=== PATIENT | female | born 1970 | race Caucasian/White ===

== ENCOUNTER 2017-01-10 20:25 | Emergency (ER) | payer SELFPAY ==
[~2017-01-10] VITALS: Ht 149.9 cm; Wt 43.7 kg
[2017-01-10 20:28] VITALS: TEMP 36.6; Ht 149.9 cm; Wt 43.7 kg
[2017-01-10] MEDS ORDERED: SODIUM CHLORIDE 0.9% 1000ML 1,000 ML IV STA (21:04)
[2017-01-10] MEDS ORDERED: ONDANSETRON INJ 2 MG/ML 2 ML VIAL IV STA (21:04)
[2017-01-10] MEDS ORDERED: MoRPHine SULFATE 4 MG/ML 1 ML CARP\\VIAL IV STA (21:04)
[2017-01-10 21:22] LABS: BASO % 0.3 %; BASO ABS # 0.03 K/uL (0-0.2); COMPLETE YES; EOS % 1.6 %; IG% 0.2 %; LYMPH % 26.9 %; LYMPH ABS # 3.08 K/uL (1.2-3.4); MEAN CELL VOLUME 87.6 fL (80-100); MEAN CORPUSCULAR HEMOGLOBIN 29.3 pg (25-34); MEAN CORPUSCULAR HGB CONC 33.4 g/dl (32-36); MONO % 4.9 %; NEUT % 66.1 %; PLATELET COUNT 260 K/uL (130-400); RED BLOOD COUNT 4.34 M/uL (4.2-5.4); WHITE BLOOD COUNT 11.43 K/uL (4.8-10.8)
[2017-01-10 21:30] LABS: BUN/CREATININE RATIO 24.8 (10-20); CALCIUM 8.9 mg/dl (8.5-10.1); CREATININE 0.81 mg/dl (0.60-1.20); POTASSIUM 3.2 mmol/L (3.5-5.1); PREG INTERNAL NEGATIVE QC NEG CLEAR BACKGROUND; PREG INTERNAL POSITIVE QC POS CONTROL LINE; URINE APPEARANCE CLEAR (CLEAR); URINE BILIRUBIN NEG (NEG); URINE COLOR YELLOW; URINE NITRITE NEG (NEG); URINE PH 5.5 (4.5-7.5); URINE SPECIFIC GRAVITY 1.026 (1.000-1.030); UROBILINOGEN NEG (NEG); ZZUR CULT IF INDIC CLEAN CATCH NO
[2017-01-10 21:31] LABS: MANUAL MICROSCOPIC REQUIRED? NO; REVIEW REQ? NO
[2017-01-10 21:33] LABS: ALB/GLOB RATIO 1.1 (0.9-2)
[2017-01-10] MEDS ORDERED: OPTIRAY 320 IV PRN (22:15)
[2017-01-10] MEDS ORDERED: MoRPHine SULFATE 4 MG/ML 1 ML CARP\\VIAL IM STA (23:04)
[2017-01-10] MEDS ORDERED: ONDANSETRON 4MG OD TAB ONE (23:48)
[2017-01-11] MEDS ORDERED: ONDANSETRON 4MG OD TAB PO ONE
--- NOTE | 2017-01-11 00:06 | EMERGENCY ROOM VISIT NOTE ---
History First contact with patient: 20:44 Chief Complaint: FLANK PAIN Stated Complaint: RT SIDE PAIN History of Present Illness The patient is a 46 year old female who presents to the Emergency Room with complaints of right abdominal/flank pain on and off for the past few days. The patient states that the pain is in the right side of her abdomen under her ribs. She has associated nausea and vomiting. She has been eating normally. She has a history of cholecystectomy. She states that she has been told she had pancreatitis, but she feels this was likely due to her gallbladder. She has a history of kidney stones, but does not feel this is similar. She denies any history of blood clots. She denies fevers/chills, changes in bowel movements, urinary symptoms, chest pain or shortness of breath. She does report a history of colitis, but states this is different. She rates her overall discomfort a 7/10. Review of Systems A complete 10 point review of systems was reviewed with the patient with pertinent positives and negatives as per history of present illness. All else were negative. Social History Smoking Status: Never Smoker Alcohol Use: occasionally Occupation Status: unemployed Current/Historical Medications Scheduled Ondasetron Odt (Zofran Odt), 4 MG SL Q6H Scheduled PRN Hydrocodone/Acetaminophen 5MG/325MG ([place] 5MG/325MG), 1-2 TABLET PO Q4H PRN for Pain Physical Exam Vital Signs Date Time Temp Pulse Resp B/P (MAP) Pulse Ox O2 Delivery O2 Flow Rate FiO2 01/11/17 00:25 82 18 117/82 100 01/10/17 23:15 100 17 119/70 98 Room Air 01/10/17 20:28 36.6 109 18 122/80 100 Room Air Physical Exam VITALS: Vitals are noted on the nurse's note and reviewed by myself. Vital signs stable. GENERAL: This is a 46-year-old female, in no acute distress, nondiaphoretic, well-developed well-nourished. HEART: Regular rate and rhythm without murmurs gallops or rubs. LUNGS: Clear to auscultation bilaterally without wheezes, rales or rhonchi. ABDOMEN: Positive bowel sounds x 4. Soft, mild right upper quadrant and right mid abdomen tenderness. No guarding or rebound tenderness. NEURO: Patient was alert and oriented to person place and time. Medical Decision & Procedures ER Provider Diagnostic Interpretation: CT OF THE ABDOMEN AND PELVIS WITHOUT CONTRAST, STONE PROTOCOL FINDINGS: No renal, ureteral or bladder calculi are present. There is no significant biliary ductal dilatation status post cholecystectomy. Several subcentimeter hypodense hepatic lesions are suboptimally assessed on this unenhanced exam but favor cysts. Unenhanced images of the spleen, adrenal glands and pancreas are normal. There is no evidence for a bowel obstruction. The appendix is not visualized. There is no lymphadenopathy. Skeletal structures are unremarkable. IMPRESSION: 1. No urinary calculi or hydronephrosis. 2. No acute process within the abdomen or pelvis on unenhanced exam. Laboratory Results 01/10/17 20:59 Red Blood Count 4.34, Mean Corpuscular Volume 87.6, Mean Corpuscular Hemoglobin 29.3, Mean Corpuscular Hemoglobin Concent 33.4, Mean Platelet Volume 10.0, Neutrophils (%) (Auto) 66.1, Lymphocytes (%) (Auto) 26.9, Monocytes (%) (Auto) 4.9, Eosinophils (%) (Auto) 1.6, Basophils (%) (Auto) 0.3, Neutrophils # (Auto) 7.56, Lymphocytes # (Auto) 3.08, Monocytes # (Auto) 0.56, Eosinophils # (Auto) 0.18, Basophils # (Auto) 0.03 01/10/17 20:59 Test 01/10/17 20:59 White Blood Count 11.43 K/uL (4.8-10.8) Red Blood Count 4.34 M/uL (4.2-5.4) Hemoglobin 12.7 g/dL (12.0-16.0) Hematocrit 38.0 % (37-47) Mean Corpuscular Volume 87.6 fL (80-100) Mean Corpuscular Hemoglobin 29.3 pg (25-34) Mean Corpuscular Hemoglobin Concent 33.4 g/dl (32-36) Platelet Count 260 K/uL (130-400) Mean Platelet Volume 10.0 fL (7.4-10.4) Neutrophils (%) (Auto) 66.1 % Lymphocytes (%) (Auto) 26.9 % Monocytes (%) (Auto) 4.9 % Eosinophils (%) (Auto) 1.6 % Basophils (%) (Auto) 0.3 % Neutrophils # (Auto) 7.56 K/uL (1.4-6.5) Lymphocytes # (Auto) 3.08 K/uL (1.2-3.4) Monocytes # (Auto) 0.56 K/uL (0.11-0.59) Eosinophils # (Auto) 0.18 K/uL (0-0.5) Basophils # (Auto) 0.03 K/uL (0-0.2) RDW Standard Deviation 45.8 fL (36.4-46.3) RDW Coefficient of Variation 14.2 % (11.5-14.5) Immature Granulocyte % (Auto) 0.2 % Immature Granulocyte # (Auto) 0.02 K/uL (0.00-0.02) D-Dimer 370 ug/L FEU (0-500) Urine Color YELLOW Urine Appearance CLEAR (CLEAR) Urine pH 5.5 (4.5-7.5) Urine Specific [place] 1.026 (1.000-1.030) Urine Protein NEG (NEG) Urine Glucose (UA) 2+ (NEG) Urine Ketones TRACE (NEG) Urine Occult Blood 1+ (NEG) Urine Nitrite NEG (NEG) Urine Bilirubin NEG (NEG) Urine Urobilinogen NEG (NEG) Urine Leukocyte Esterase NEG (NEG) Urine WBC (Auto) 0 /hpf (0-5) Urine RBC (Auto) 5-10 /hpf (0-4) Urine Hyaline Casts (Auto) 1-5 /lpf (0-5) Urine Epithelial Cells (Auto) 10-20 /lpf (0-5) Urine Bacteria (Auto) NEG (NEG) Urine Test NEG (NEG) Anion Gap 8.0 mmol/L (3-11) Est Creatinine Clear Calc Drug Dose 59.9 ml/min Estimated GFR () 101.7 Estimated GFR (Non- 87.7 BUN/Creatinine Ratio 24.8 (10-20) Calcium Level 8.9 mg/dl (8.5-10.1) Total Bilirubin 0.3 mg/dl (0.2-1) Aspartate Amino Transf (AST/SGOT) 12 U/L (15-37) Alanine Aminotransferase (ALT/SGPT) 22 U/L (12-78) Alkaline Phosphatase 53 U/L (45-117) Total Protein 7.6 gm/dl (6.4-8.2) Albumin 3.9 gm/dl (3.4-5.0) Globulin 3.7 gm/dl (2.5-4.0) Albumin/Globulin Ratio 1.1 (0.9-2) Lipase 357 U/L (73-393) Medications Administered Medications (Trade) Dose Ordered Sig/Cynthia Route Start Time Stop Time Status Last Admin Dose Admin Sodium Chloride 1,000 ml @ 999 mls/hr Q1H1M STAT IV 01/10/17 21:04 01/10/17 22:04 DC 01/10/17 21:32 999 MLS/HR Ondansetron HCl (Zofran Inj) 4 mg NOW STAT IV 01/10/17 21:04 01/10/17 21:07 DC 01/10/17 21:32 4 MG Morphine Sulfate (MoRPHine SULFATE INJ) 4 mg NOW STAT IV 01/10/17 21:04 01/10/17 21:07 DC 01/10/17 21:32 4 MG Morphine Sulfate (MoRPHine SULFATE INJ) 4 mg NOW STAT IM 01/10/17 23:04 01/10/17 23:05 DC 01/10/17 23:12 4 MG Ondansetron HCl (Zofran Odt) 4 mg ONE ONCE PO 01/11/17 00:00 01/11/17 00:01 DC 01/10/17 23:50 4 MG Acetaminophen/ Hydrocodone Bitart ([place] 5/325mg Home Pack) 1 homepack UD ONCE PO 01/11/17 00:15 01/11/17 00:16 DC 01/11/17 00:23 1 HOMEPACK Ondansetron HCl (ZOFRAN ODT 4MG Home Pack) 1 homepack UD ONCE PO 01/11/17 00:15 01/11/17 00:16 DC 01/11/17 00:23 1 HOMEPACK ED Course The patient was evaluated as above. Labs were drawn and IV access was obtained. Patient was medicated with 1 L normal saline solution, 4 mg morphine IV and 4 mg Zofran IV. Patient was reevaluated and had continued pain and nausea. She was given an additional dose of morphine and Zofran. Discharge instructions were reviewed with the patient. The patient verbalized understanding of my assessment and treatment plan and was discharged home in good condition. Medical Decision Differential diagnosis includes acute hepatitis, pancreatitis, bowel obstruction , kidney stone, pyelonephritis, pulmonary embolism, pneumonia, gastritis, colitis, among others. The patient is a 46-year-old female who presents today complaining of right flank pain. She has had a prior cholecystectomy. She is afebrile. Labs revealed a mild leukocytosis consistent with vomiting. Labs were otherwise unremarkable. No concerning electrolyte abnormalities. Lipase was not elevated. Urinalysis was not suggestive of infection. Urine was negative. CT of the abdomen and pelvis was read by radiology with no acute findings. The patient was treated symptomatically in the emergency department. She was discharged home with prescriptions for pain medication and Zofran. She was instructed to follow-up with her primary care provider this week. Based on the patient's presentation and work up, I feel the patient is stable for outpatient treatment. The patient was educated to return to the emergency department for any worsening of their current condition or new/concerning symptoms. She will follow up with her PCP. Medication Reconcilliation Current Medication List: was personally reviewed by me Blood Pressure Screening Patient's blood pressure: Normal blood pressure Impression Primary Impression: Right flank pain Departure Information Dispostion Home / Self-Care Condition GOOD Prescriptions Ondasetron Odt (ZOFRAN ODT) 4 Mg Tab 4 MG SL Q6H for Nausea, #10 TAB Prov: Brenda Berumen PA-C 01/11/17 Hydrocodone/Acetaminophen 5MG/325MG ([place] 5MG/325MG) Tab 1-2 TABLET PO Q4H Y for Pain, #10 TAB For Initial Treatment Prov: Brenda Berumen PA-C 01/11/17 Referrals No Doctor, Assigned (PCP) Patient Instructions My [facility] Additional Instructions You have been treated in the Emergency Department for your Abdominal Pain. Laboratory results and imaging studies have ruled out any emergent causes for your abdominal pain which would warrant admission or surgery. You have been prescribed [place] to be used for pain control. This is a narcotic medication. You cannot drive or consume alcohol while on this medicine. This medicine should only be used for pain that cannot be controlled with over-the- counter pain medicines. You have been prescribed Zofran to be used for any nausea or vomiting. Take as prescribed. For pain control, you can use the following [id number] medicines (if >12 yo): - Regular strength (325mg/tab) Tylenol (acetaminophen) 2 tabs every 4-6 hours as needed. Do not exceed 12 tablets in a 24 hour period. Avoid taking more than 4 grams (4000 mg) of Tylenol per day. This includes any other sources of acetaminophen you may take on a regular basis. - Regular strength (200 mg/tab) Advil (ibuprofen) 1-2 tabs every 4-6 hours as needed. Do not exceed a dose of 3200 mg per day. Drink plenty of water and stay well hydrated. As with any trip to the Emergency Department, you should follow-up with your Primary Care Provider from today's visit. Return to the emergency department if your symptoms persist despite treatment plan outlined above or if the following symptoms occur: increased fevers, chills , worsening nausea/vomiting, blood in your stool or urine.
[2017-01-11] MEDS ORDERED: HYDR-5688 PO (00:15)
[2017-01-11] MEDS ORDERED: NORCO 5/325MG HOME PACK PO ONE (00:15)
[2017-01-11] MEDS ORDERED: ONDA4TAB10 SL (00:15)
[2017-01-11] MEDS ORDERED: ONDANSETRON HOME PACK 4MG OD TAB PO ONE (00:15)
[2017-01-11 00:25] VITALS: BP 117/82; PULSE 82; O2SAT 100
--- NOTE | 2017-01-11 07:14 | DIAGNOSTIC IMAGING REPORT ---
CT OF THE ABDOMEN AND PELVIS WITHOUT CONTRAST, STONE PROTOCOL CLINICAL HISTORY: Right flank pain. COMPARISON STUDY: CT of the abdomen and pelvis August 04, 2006. TECHNIQUE: Helical axial images of the abdomen and pelvis were obtained without IV or oral contrast according to renal stone protocol. A dose lowering technique was utilized adhering to the principles of ALARA. FINDINGS: No renal, ureteral or bladder calculi are present. There is no significant biliary ductal dilatation status post cholecystectomy. Several subcentimeter hypodense hepatic lesions are suboptimally assessed on this unenhanced exam but favor cysts. Unenhanced images of the spleen, adrenal glands and pancreas are normal. There is no evidence for a bowel obstruction. The appendix is not visualized. There is no lymphadenopathy. Skeletal structures are unremarkable. IMPRESSION: 1. No urinary calculi or hydronephrosis. 2. No acute process within the abdomen or pelvis on unenhanced exam. Electronically signed by: Fernando Stoddard M.D. 01/11/2017 7:13 AM Dictated Date/Time: 01/11/2017 7:09 AM
== END 2017-01-11 00:25 | disposition home or self-care (01) ==
LOC: C.EDB 20:26
DX: R10.30 Lower abdominal pain, unspecified (principal); D72.829 Elevated white blood cell count, unspecified; R11.2 Nausea with vomiting, unspecified; Z90.49 Acquired absence of other specified parts of digestive tract

== ENCOUNTER 2017-03-12 17:08 | Emergency (ER) | payer SELFPAY ==
[~2017-03-12] VITALS: Ht 149.9 cm; Wt 44.1 kg
[~2017-03-12 17:08] MED LIST: HYDR-5688 PO; ONDA4TAB10 SL
[2017-03-12 17:13] VITALS: Ht 149.9 cm; Wt 44.1 kg
[2017-03-12] MEDS ORDERED: SODIUM CHLORIDE 0.9% 1000ML 1,000 ML IV STA (17:57)
[2017-03-12] MEDS ORDERED: CEFTRIAXONE SOD INJ 1 GM ADDVIAL IV STA (18:02)
[2017-03-12] MEDS ORDERED: IBUP-1050 PO (18:14)
--- NOTE | 2017-03-12 18:18 | EMERGENCY ROOM VISIT NOTE ---
History Report prepared by Luna: Cristóbal Moreira Under the Supervision of: Dr. Margareth Burt M.D. First contact with patient: 17:36 Chief Complaint: FLANK PAIN Stated Complaint: R FLANK PAIN, ABD PAIN, KIDNEY INFECTION History of Present Illness The patient is a 46 year old female who presents to the Emergency Room with complaints of right flank pain that began three days ago. She rates her current pain a 7/10 in severity. She has a past medical history of pyelonephritis and kidney stones. She believes that her current symptoms are similar to her symptoms associated with her past pyelonephritis. A couple of days ago, she began having strong smelling urine. She then began experiencing right flank pain , lower back pain, and lower abdominal pain as well. She denies any burning with urination. She denies any history of diabetes. Source of History: patient Onset: three days ago Position: other (Right flank) Symptom Intensity: 7/10 Quality: sharp Timing: constant Associated Symptoms: + abdominal pain, + back pain, + urinary symptoms ( strong smelling urine, no burning with urination) Review of Systems See HPI for pertinent positives & negatives. A total of 10 systems reviewed and were otherwise negative. Past Medical & Surgical Medical Problems: (1) Kidney stone (2) Pyelonephritis Family History Patient reports no known family medical history. Social History Smoking Status: Never Smoker Smokeless Tobacco Use: No Alcohol Use: occasionally Marital Status: single Housing Status: lives with family Occupation Status: unemployed Current/Historical Medications Scheduled Cephalexin Monohydrate (Keflex), 500 MG PO QID Scheduled PRN Ibuprofen (Advil), 400 MG PO DAILY PRN for Pain or Fever Allergies Coded Allergies: Codeine (Unverified Allergy, Severe, HIVES, 03/12/17) Ketorolac Tromethamine (Verified Allergy, Intermediate, HIVES, 01/10/17) Butorphanol (Verified Allergy, Mild, DYSTONIC REACTION, 01/10/17) Prochlorperazine (Unverified Allergy, Unknown, "DYSTONIC REACTION", ) Tramadol (Unverified Allergy, Unknown, UNKNOWN, 01/10/17) Physical Exam Vital Signs Date Time Temp Pulse Resp B/P (MAP) Pulse Ox O2 Delivery O2 Flow Rate FiO2 03/12/17 21:13 36.6 107 18 121/71 100 03/12/17 21:12 107 18 121/71 100 Room Air 03/12/17 19:32 110 18 118/71 100 Room Air 03/12/17 17:13 36.6 114 18 121/70 100 Room Air Physical Exam Vital signs reviewed. General: Well-appearing female, in no significant distress. HEENT: No scleral icterus, PERRLA, neck supple. Atraumatic. Cardiovascular: Regular rate and rhythm, no extra sounds. Pulmonary: Clear to auscultation bilaterally, normal work of breathing. Abdomen: Soft, nontender, nondistended, positive bowel sounds. Musculoskeletal: Atraumatic, no peripheral edema. Minimal CVA tenderness. Neurologic: Patient awake alert and oriented x 3 Skin: Warm, dry, no rash Medical Decision & Procedures ER Provider Diagnostic Interpretation: Radiology results as stated below per my review and radiologist interpretation: EXAMINATION: RENAL ULTRASOUND CLINICAL HISTORY: pyelonephritis, R flank pain COMPARISON STUDY: CT scan dated 01/10/2017 FINDINGS: The right kidney measures 10.1 cm. The left kidney measures 10.1 cm. There is no evidence of hydronephrosis. There are no renal masses. No perinephric fluid collections were visualized. The bladder was empty at the time of scanning. Neither ureteral jet was visualized. IMPRESSION : No renal abnormalities identified. Suboptimal evaluation of the bladder, as the bladder was empty at the time of scanning Electronically signed by: Dion Rollins M.D. 03/12/2017 7:55 PM Dictated Date/Time: 03/12/2017 7:54 PM Laboratory Results 03/12/17 18:36 Red Blood Count 4.39, Mean Corpuscular Volume 87.0, Mean Corpuscular Hemoglobin 29.2, Mean Corpuscular Hemoglobin Concent 33.5, Mean Platelet Volume 10.0, Neutrophils (%) (Auto) 77.3, Lymphocytes (%) (Auto) 16.9, Monocytes (%) (Auto) 4.8, Eosinophils (%) (Auto) 0.7, Basophils (%) (Auto) 0.1, Neutrophils # (Auto) 7.43, Lymphocytes # (Auto) 1.62, Monocytes # (Auto) 0.46, Eosinophils # (Auto) 0.07, Basophils # (Auto) 0.01 03/12/17 18:36 Test 03/12/17 18:00 03/12/17 18:36 Urine Color YELLOW Urine Appearance CLOUDY (CLEAR) Urine pH 6.5 (4.5-7.5) Urine Specific [place] 1.015 (1.000-1.030) Urine Protein NEG (NEG) Urine Glucose (UA) NEG (NEG) Urine Ketones NEG (NEG) Urine Occult Blood 2+ (NEG) Urine Nitrite POS (NEG) Urine Bilirubin NEG (NEG) Urine Urobilinogen NEG (NEG) Urine Leukocyte Esterase MODERATE (NEG) Urine WBC (Auto) >30 /hpf (0-5) Urine RBC (Auto) 0-4 /hpf (0-4) Urine Hyaline Casts (Auto) 5-10 /lpf (0-5) Urine Epithelial Cells (Auto) 5-10 /lpf (0-5) Urine Bacteria (Auto) 4+ (NEG) White Blood Count 9.61 K/uL (4.8-10.8) Red Blood Count 4.39 M/uL (4.2-5.4) Hemoglobin 12.8 g/dL (12.0-16.0) Hematocrit 38.2 % (37-47) Mean Corpuscular Volume 87.0 fL (80-100) Mean Corpuscular Hemoglobin 29.2 pg (25-34) Mean Corpuscular Hemoglobin Concent 33.5 g/dl (32-36) Platelet Count 234 K/uL (130-400) Mean Platelet Volume 10.0 fL (7.4-10.4) Neutrophils (%) (Auto) 77.3 % Lymphocytes (%) (Auto) 16.9 % Monocytes (%) (Auto) 4.8 % Eosinophils (%) (Auto) 0.7 % Basophils (%) (Auto) 0.1 % Neutrophils # (Auto) 7.43 K/uL (1.4-6.5) Lymphocytes # (Auto) 1.62 K/uL (1.2-3.4) Monocytes # (Auto) 0.46 K/uL (0.11-0.59) Eosinophils # (Auto) 0.07 K/uL (0-0.5) Basophils # (Auto) 0.01 K/uL (0-0.2) RDW Standard Deviation 45.7 fL (36.4-46.3) RDW Coefficient of Variation 14.3 % (11.5-14.5) Immature Granulocyte % (Auto) 0.2 % Immature Granulocyte # (Auto) 0.02 K/uL (0.00-0.02) Anion Gap 7.0 mmol/L (3-11) Est Creatinine Clear Calc Drug Dose 73.5 ml/min Estimated GFR () 123.6 Estimated GFR (Non- 106.7 BUN/Creatinine Ratio 15.6 (10-20) Calcium Level 9.2 mg/dl (8.5-10.1) Total Bilirubin 0.4 mg/dl (0.2-1) Direct Bilirubin 0.1 mg/dl (0-0.2) Aspartate Amino Transf (AST/SGOT) 14 U/L (15-37) Alanine Aminotransferase (ALT/SGPT) 19 U/L (12-78) Alkaline Phosphatase 53 U/L (45-117) Total Protein 7.3 gm/dl (6.4-8.2) Albumin 3.8 gm/dl (3.4-5.0) Laboratory results per my review. Medications Administered Medications (Trade) Dose Ordered Sig/Cynthia Route Start Time Stop Time Status Last Admin Dose Admin Acetaminophen (Tylenol Tab) 650 mg NOW STAT PO 03/12/17 18:22 03/12/17 18:23 DC 03/12/17 19:25 650 MG Ceftriaxone Sodium (Rocephin Im) 1,000 mg NOW ONCE IM 03/12/17 19:15 03/12/17 19:16 DC 03/12/17 19:25 1,000 MG Ondansetron HCl (Zofran Odt) 4 mg ONE STAT PO 03/12/17 20:23 03/12/17 20:25 DC 03/12/17 20:32 4 MG Hydromorphone HCl (Dilaudid Inj) 1 mg NOW STAT IM 03/12/17 20:24 03/12/17 20:25 DC 03/12/17 20:34 1 MG ED Course 1736: Past medical records reviewed. The patient was evaluated in room B4B. A complete history and physical examination was performed. 1757: Ordered Sodium Chloride 1000 ml @ 999 mls/hr IV 1802: Ordered Rocephin Inj 1 gm IV 1821: Ordered Tylenol Tab 650 mg PO 1914: Ordered Rocephin Im 1000 mg IM 2022: Ordered Zofran Odt 4 mg PO 2023: Ordered Dilaudid Inj 1 mg IM 2049: Upon reevaluation, the patient appeared to have improvement of her symptoms. I discussed findings with her. She verbalized agreement of the treatment plan. She was discharged home. Medical Decision Differential diagnosis: Etiologies such as renal colic, appendicitis, diverticulitis, mesenteric ischemia, aortic pathology, infections, inflammatory bowel disease, PUD, biliary pathology, UTI, as well as others were entertained. This patient was evaluated and appeared to be in no significant distress. IV access was attempted but unsuccessful. Laboratory work was drawn. Patient was given Tylenol 650 mg orally. Laboratory work is fairly unrevealing. Urinalysis is indicative of infection and will be sent for culture. Patient was given ceftriaxone 1 g IM. She continued to complain of discomfort and was given 1 mg of IM Dilaudid and Zofran ODT. Patient was discharged with a prescription for Keflex 500 mg 4 times daily for 7 days. The patient states she does not have insurance and would like a "cheap" antibiotic. Patient was advised to contact emergency department in 2 days' time for culture results. She will follow-up with her primary care provider this week and return to the ER for worsening of symptoms or any medical concerns. Medication Reconcilliation Current Medication List: was personally reviewed by me Blood Pressure Screening Patient's blood pressure: Normal blood pressure Blood pressure disposition: Did not require urgent referral Impression Primary Impression: Pyelonephritis Scribe Attestation The scribe's documentation has been prepared under my direction and personally reviewed by me in its entirety. I confirm that the note above accurately reflects all work, treatment, procedures, and medical decision making performed by me. Departure Information Dispostion Home / Self-Care Prescriptions Cephalexin Monohydrate (Keflex) 500 Mg Cap 500 MG PO QID for 7 Days, #28 CAP Prov: Margareth Burt M.D. 03/12/17 Referrals No Doctor, Assigned (PCP) Forms HOME CARE DOCUMENTATION FORM, IMPORTANT VISIT INFORMATION Patient Instructions My [facility] Additional Instructions Diagnosis: Pyelonephritis Keflex 500 mg four times daily for 7 days. Drink plenty of fluids. Tylenol 650 mg every 6 hours as needed for pain. Follow up with your doctor this week for reevaluation. Return to the ED for worsening of symptoms or any medical concerns.
[2017-03-12] MEDS ORDERED: ACETAMINOPHEN 325 MG TAB PO STA (18:22)
[2017-03-12 18:23] LABS: URINE APPEARANCE CLOUDY (CLEAR); URINE BILIRUBIN NEG (NEG); URINE COLOR YELLOW; URINE NITRITE POS (NEG); URINE PH 6.5 (4.5-7.5); URINE SPECIFIC GRAVITY 1.015 (1.000-1.030); UROBILINOGEN NEG (NEG); ZZUR CULT IF INDIC CLEAN CATCH YES
[2017-03-12 18:25] LABS: MANUAL MICROSCOPIC REQUIRED? NO; REVIEW REQ? NO
[2017-03-12 19:09] LABS: BASO % 0.1 %; BASO ABS # 0.01 K/uL (0-0.2); COMPLETE YES; EOS % 0.7 %; HEMATOCRIT 38.2 % (37-47); IG% 0.2 %; LYMPH % 16.9 %; LYMPH ABS # 1.62 K/uL (1.2-3.4); MEAN CORPUSCULAR HEMOGLOBIN 29.2 pg (25-34); MEAN CORPUSCULAR HGB CONC 33.5 g/dl (32-36); MONO % 4.8 %; NEUT % 77.3 %; PLATELET COUNT 234 K/uL (130-400); RED BLOOD COUNT 4.39 M/uL (4.2-5.4); WHITE BLOOD COUNT 9.61 K/uL (4.8-10.8)
[2017-03-12] MEDS ORDERED: CEFTRIAXONE SOD 350MG/ML 1 GM VIAL IM ONE (19:15)
[2017-03-12 19:33] LABS: BUN/CREATININE RATIO 15.6 (10-20); CALCIUM 9.2 mg/dl (8.5-10.1); CREATININE 0.66 mg/dl (0.60-1.20); POTASSIUM 3.5 mmol/L (3.5-5.1)
--- NOTE | 2017-03-12 19:56 | DIAGNOSTIC IMAGING REPORT ---
EXAMINATION: RENAL ULTRASOUND CLINICAL HISTORY: pyelonephritis, R flank pain COMPARISON STUDY: CT scan dated 01/10/2017 FINDINGS: The right kidney measures 10.1 cm. The left kidney measures 10.1 cm. There is no evidence of hydronephrosis. There are no renal masses. No perinephric fluid collections were visualized. The bladder was empty at the time of scanning. Neither ureteral jet was visualized. IMPRESSION : No renal abnormalities identified. Suboptimal evaluation of the bladder, as the bladder was empty at the time of scanning Electronically signed by: Dion Rollins M.D. 03/12/2017 7:55 PM Dictated Date/Time: 03/12/2017 7:54 PM
[2017-03-12] MEDS ORDERED: ONDANSETRON 4MG OD TAB PO STA (20:23)
[2017-03-12] MEDS ORDERED: HYDROmorphone INJ 1 MG/ML SYR IM STA (20:24)
[2017-03-12] MEDS ORDERED: CEPH500C PO (20:41)
[2017-03-12 21:13] VITALS: BP 121/71; PULSE 107; TEMP 36.6; O2SAT 100
--- NOTE | 2017-03-14 11:59 | Pharmacy Progress Note ---
ED Pharmacist Culture FollowUp Date of Service: Mar 14, 2017. Patient was sent home with a prescription for cephalexin, which should cover the E. coli growing from the patient's urine culture, based on reported sensitivity to cefazolin.
== END 2017-03-12 21:13 | disposition home or self-care (01) ==
LOC: C.EDB 17:09
DX: N12 Tubulo-interstitial nephritis, not specified as acute or chronic (principal); Z87.442 Personal history of urinary calculi

== ENCOUNTER 2022-01-17 15:56 | Observation (INO) ==
[2022-01-17] MEDS ORDERED: SODIUM CHLORIDE 0.9% 1000ML 1,000 ML IV ONE (16:26)
[2022-01-17] MEDS ORDERED: ONDANSETRON INJ 2 MG/ML 2 ML VIAL IV STA ×3 (16:26→21:55)
--- NOTE | 2022-01-17 16:50 | Emergency Department Note ---
History of Present Illness General Chief complaint: Vomiting Stated complaint: Vomiting/ Hx Gastroparesis Time Seen by Provider: 01/17/22 16:26 History of Present Illness Provider Complaint: + nausea and + vomiting Onset (ago): hour(s) 3 Description of Vomiting: + bilious; no blood-streaked, no bloody or no coffee grounds Associated Abdominal Pain: Yes Location of pain: + diffuse Quality: + cramping Pain Consistency: + constant Relieved By: + none Exacerbated By: + vomiting Context: + other (history gastroparesis); no recent surgery/procedure, no history of abdominal surgery, no alcohol abuse, no trauma, no anticoagulant use, no NSAID use, no caffeine, no self induced, no smoking, no CO exposure or no marijuana use Associated symptoms: no chest pain, no cough, no fever/chills, no headaches, no malaise, no dysuria, no shortness of breath, no syncope, no decreased urine output, no fecal incontinence, no altered mental status or no bloating Home Medications Medication Instructions Recorded Confirmed Type acetaminophen 325 mg capsule 325 mg PO Q6H PRN Pain 05/02/19 01/17/22 History (Tylenol) dicyclomine 10 mg capsule 10 mg PO QID PRN Diarrhea 07/12/20 01/17/22 History pediatric multivitamin 1 tab PO DAILY 12/26/20 01/17/22 History (Flintstones Multivitamin) lubiprostone 8 mcg capsule 8 mcg PO BID 12/29/20 01/17/22 History rizatriptan 10 mg tablet (Maxalt) 10 mg PO Q2H PRN migraine headache 09/17/21 01/17/22 Rx #10 tabs omeprazole 20 mg capsule,delayed 20 mg PO BID PRN Acid Reflux 10/19/21 01/17/22 History release promethazine 12.5 mg tablet 12.5 mg PO BID 10/19/21 01/17/22 History clobetasol 0.05 % topical ointment 1 applic topical BID 2 weeks #30 12/18/21 01/17/22 Rx grams hydroxyzine HCl 25 mg tablet 25 mg PO TID PRN anxiety #60 tabs 12/18/21 01/17/22 Rx nortriptyline 25 mg capsule 25 mg PO DAILY #90 caps 01/11/22 01/17/22 Rx (Pamelor) oxycodone-acetaminophen 5 mg-325 1 tab PO Q6H PRN pain 30 days #120 01/11/22 01/17/22 Rx mg tablet (Percocet) tabs prednisone 20 mg tablet 20 mg PO DAILY #30 tabs 01/11/22 01/17/22 Rx diclofenac sodium 1 % topical gel 2 g topical QID PRN Pain 01/17/22 01/17/22 History gabapentin 300 mg capsule 300 mg PO BID PRN Pain 01/17/22 01/17/22 History Allergies Allergy/AdvReac Type Severity Reaction Status Date / Time codeine Allergy Severe HIVES Verified 01/01/22 15:41 ketorolac Allergy Intermediate HIVES Verified 01/01/22 15:41 butorphanol Allergy Mild DYSTONIC Verified 01/01/22 15:41 REACTION prochlorperazine Allergy Unknown "DYSTONIC Verified 01/01/22 15:41 REACTION" acetaminophen Allergy Unknown Verified 01/01/22 15:41 [From Darvocet-N] morphine Allergy Unknown Verified 01/01/22 15:41 propoxyphene Allergy Unknown Verified 01/01/22 15:41 [From Darvocet-N] methadone AdvReac Intermediate Nausea, Verified 01/01/22 15:41 Vomitting tramadol AdvReac Unknown felt Verified 01/01/22 15:41 "foggy" Past Med/Surg History Medical History (Updated 01/18/22 @ 00:44 by Sean Hines) Arthritis Right flank pain Syncope Surgical History History of ankle surgery History of appendectomy History of carpal tunnel surgery History of exploratory laparotomy History of tonsillectomy and adenoidectomy History of tubal ligation Hx of cholecystectomy S/P endoscopy 05/17/19 Dr. Ruslan Hutson- Upper GI S/P ERCP 05/17/19 Dr. Ruslan Hutson- Upper esophagus US, ERCP Family History Grandmother (Paternal) Myocardial infarction Cardiac disorder Diabetes Hypertension High cholesterol Grandfather (Paternal) Myocardial infarction Diabetes Hypertension Uncle AAA (abdominal aortic aneurysm) Aunt AAA (abdominal aortic aneurysm) Grandmother (Maternal) AAA (abdominal aortic aneurysm) Diabetes Hypertension High cholesterol Sister Asthma Gallbladder disease Hypertension Kidney stones High cholesterol Grandfather (Maternal) Diabetes Hypertension Father Hypertension High cholesterol Mother Multiple sclerosis Other FHx: heart disease Family history of diabetes mellitus Denies family history of Colon cancer Ovarian cancer Prostate cancer Breast cancer Social History Smoking Status: Never smoker Hx Alcohol Use: Yes Hx Substance Use: No Preferred Language: Irish Visual Impairment: No Limitations Hearing Ability: Normal Beliefs That Will Affect Care: None marital status: Single Current Living Situation: Significant Other current occupational status: employed current occupation: nurse with [employer] Feels Safe at Home: Yes Childhood Exposure to Second-Hand Smoke: Yes caffeine: Yes Dental Care, Regularly: No Physical Activity Frequency: Does not Exercise Seatbelt Use: always Sunscreen Use: Yes Do you think of yourself as: straight/heterosexual Review of Systems A total of 10 systems reviewed and were otherwise negative Physical Exam Vital Signs: Vital Signs - 24 hr 01/17/22 16:15 01/17/22 16:26 01/17/22 18:00 Pulse Rate 83 Pulse Rate [Finger ] 79 Respiratory Rate 22 16 Blood Pressure 133/81 Blood Pressure [Ri ght Arm] Blood Pressure Patsy n 98 Blood Pressure Patsy n [Right Arm] Blood Pressure Pos ition Lying Pulse Oximetry 100 96 98 Oxygen Delivery Me thod Room Air Room Air Sepsis Recent Feve r Within 48 Hours No Sepsis New/Unexpla ined Change in Men angelia Status N/A Sepsis Action Take n by Nursing No Action Required 01/17/22 20:00 01/17/22 22:13 Pulse Rate Pulse Rate [Finger ] 70 76 Respiratory Rate 16 18 Blood Pressure Blood Pressure [Ri ght Arm] 96/61 L 97/53 L Blood Pressure Patsy n Blood Pressure Patsy n [Right Arm] 72 67 Blood Pressure Pos ition Pulse Oximetry 96 94 Oxygen Delivery Me thod Room Air Room Air Sepsis Recent Feve r Within 48 Hours Sepsis New/Unexpla ined Change in Men angelia Status Sepsis Action Take n by Nursing Physical Exam: Physical Exam GENERAL: Patient vomiting. HENT: Exam performed. -Head: Normocephalic and atraumatic. -Right Ear: External ear normal. No mastoid tenderness. -Left Ear: External ear normal. No mastoid tenderness. -Mouth/Throat: The oropharynx is clear and moist. No trismus in the jaw. No dental abscesses or uvula swelling. No oropharyngeal exudate or tonsillar abscesses. EYES: Conjunctivae and EOM are normal. Pupils are equal, round, and reactive to light. Right eye exhibits no discharge. Left eye exhibits no discharge. No scleral icterus. NECK: Normal range of motion. Neck supple. No JVD present. No spinous process tenderness present. No carotid bruit present. No rigidity. No tracheal deviation and normal range of motion present. No Brudzinski's sign and no Kernig's sign noted. CV: Normal rate, regular rhythm, normal heart sounds and intact distal pulses. There is no peripheral edema. Palpable radial pulses bue. PULM/CHEST: Effort normal and breath sounds normal. No respiratory distress. No stridor. She has no wheezes. She has no rales. -Chest Wall: She exhibits no tenderness. ABD: The abdomen is soft.There is no tenderness. MUSC/SKEL: Normal range of motion. There is no peripheral edema, tenderness or deformity. LYMPH: No cervical adenopathy. NEURO: She is alert and oriented to person, place, and time. She has normal strength. No cranial nerve deficit or sensory deficit. Coordination and gait normal. GCS eye subscore is 4. GCS verbal subscore is 5. GCS motor subscore is 6. Cerebellar tests wnl. SKIN: Skin is warm and dry. She is not diaphoretic. PSYCH: She has a normal mood and affect. Behavior is normal. Judgment and thought content normal. Course Course 1626: The patient was evaluated in room A2. A complete history and physical exam was performed Cardiac monitoring: An order was placed for continuous cardiac monitoring. The monitor shows a rate of 80 with sinus rhythm Administered Medications Discontinued Medications Hydromorphone HCl (Hydromorphone Inj 0.5 Mg/0.5 Ml Syr) 0.5 mg IV NOW STA Stop: 01/17/22 19:10 Last Admin: 01/17/22 19:24 Dose: 0.5 mg Documented By: GEORGE Hydromorphone HCl (Hydromorphone Inj 0.5 Mg/0.5 Ml Syr) 0.5 mg IV NOW STA Stop: 01/17/22 21:56 Last Admin: 01/17/22 22:02 Dose: 0.5 mg Documented By: GEORGE Sodium Chloride (Nss 1000ml) 1,000 mls @ 999 mls/hr IV .Q1H1M ONE Stop: 01/17/22 17:26 Last Infusion: 01/17/22 18:36 Dose: 0 mls/hr Documented By: Admin: 01/17/22 17:34 Dose: 999 mls/hr Documented By: GHASSAN Ondansetron HCl (Ondansetron Inj 2 Mg/Ml 2 Ml Vial) 4 mg IV NOW STA Stop: 01/17/22 16:27 Last Admin: 01/17/22 17:31 Dose: 4 mg Documented By: GHASSAN Ondansetron HCl (Ondansetron 4 Mg Od Tab) 4 mg PO NOW STA Stop: 01/17/22 16:52 Last Admin: 01/17/22 16:55 Dose: 4 mg Documented By: DARIELA Ondansetron HCl (Ondansetron Inj 2 Mg/Ml 2 Ml Vial) 4 mg IV NOW STA Stop: 01/17/22 19:10 Last Admin: 01/17/22 19:24 Dose: 4 mg Documented By: GEORGE Ondansetron HCl (Ondansetron Inj 2 Mg/Ml 2 Ml Vial) 4 mg IV NOW STA Stop: 01/17/22 21:56 Last Admin: 01/17/22 22:02 Dose: 4 mg Documented By: GEORGE Medical Decision Making Laboratory Data Result diagrams: 01/17/22 18:04 01/17/22 17:03 Lab Results 01/17/22 01/17/22 01/17/22 Range/Units 17:03 17:03 18:04 WBC Cancelled 22.69 H RBC Cancelled 4.77 Hgb Cancelled 13.8 Hct Cancelled 41.8 MCV Cancelled 87.6 MCH Cancelled 28.9 MCHC Cancelled 33.0 RDW Std Deviation Cancelled 56.2 H RDW Coeff of Vilma Cancelled 17.4 H Plt Count Cancelled 258 MPV Cancelled 9.7 Immature Gran % (Auto) Cancelled 0.5 Neut % (Auto) Cancelled 94.3 Lymph % (Auto) Cancelled 2.3 [place] % (Auto) Cancelled 2.5 Eos % (Auto) Cancelled 0.2 Baso % (Auto) Cancelled 0.2 Neut # (Auto) Cancelled 21.39 H Lymph # (Auto) Cancelled 0.53 L [place] # (Auto) Cancelled 0.56 Eos # (Auto) Cancelled 0.04 Baso # (Auto) Cancelled 0.05 Immature Gran # (Auto) Cancelled 0.12 H Absolute Nucleated RBC Cancelled Nucleated RBC % (auto) Cancelled Neutrophils % (Manual) Cancelled Band Neutrophils % Cancelled Lymphocytes % (Manual) Cancelled Prolymphocyte % Cancelled Reactive Lymphs % (Man) Cancelled Monocytes % (Manual) Cancelled Eosinophils % (Manual) Cancelled Basophils % (Manual) Cancelled Metamyelocytes % (Man) Cancelled Myelocytes % (Man) Cancelled Promyelocytes % (Man) Cancelled Blast Cells % (Manual) Cancelled Plasma Cell % (Manual) Cancelled Other Cells % Cancelled Nucleated RBC % Cancelled Neutrophils # (Manual) Cancelled Band Neutrophils # Cancelled Total Absolute Neuts Cancelled Lymphocytes # (Manual) Cancelled Prolymphocyte # Cancelled Reactive Lymphs # Cancelled Total Abs Lymphocytes Cancelled Monocytes # (Manual) Cancelled Eosinophils # (Manual) Cancelled Basophils # (Manual) Cancelled Metamyelocytes # (Man) Cancelled Myelocytes # (Manual) Cancelled Promyelocytes # (Man) Cancelled Blast Cells # (Man) Cancelled Plasma Cell # (Manual) Cancelled Other Cells # Cancelled Nucleated RBCs # (Man) Cancelled Hypersegmented Neuts Cancelled Hyposegmented Neuts Cancelled Hypogranular Neuts Cancelled Large Granular Lymphs Cancelled # Lrg Granular Lymphs Cancelled Hairy Cells Cancelled Smudge Cells Cancelled Toxic Granulation Cancelled Toxic Vacuolation Cancelled Dohle Bodies Cancelled Wiliam Rods Cancelled Platelet Estimate Cancelled Hypogranular Platelets Cancelled Clumped Platelets Cancelled Giant Platelets Cancelled Platelet Satelliting Cancelled RBC Morphology Cancelled Polychromasia Cancelled Hypochromasia Cancelled Poikilocytosis Cancelled Basophilic Stippling Cancelled Anisocytosis Cancelled Microcytosis Cancelled Macrocytosis Cancelled Spherocytes Cancelled Pappenheimer Bodies Cancelled Sickle Cells Cancelled Target Cells Cancelled Tear Drop Cells Cancelled Ovalocytes Cancelled Stomatocytes Cancelled Kraft-Venetie Bodies Cancelled Echinocytes Cancelled Acanthocytes (Spur) Cancelled Rouleaux Cancelled RBC Agglutinates Cancelled Schistocytes Cancelled Sezary Cell Cancelled Sodium 132 L (136-145) mmol/L Potassium 3.4 L (3.5-5.1) mmol/L Chloride 98 (98-107) mmol/L Carbon Dioxide 21 (21-32) mmol/L Anion Gap 13 H (3-11) BUN 14 (6-23) mg/dl Creatinine 0.78 (0.6-1.2) mg/dl Est Cr Clr Drug Dosing 57.5 ml/min Est GFR ( Amer) 102.7 ml/min Est GFR (Non-Af Amer) 88.6 ml/min BUN/Creatinine Ratio 17.9 (10-20) Glucose 144 H (70-99(Fasting)) mg/dl Calcium 10.6 H (8.5-10.1) mg/dl Total Bilirubin 0.6 (0.2-1.0) mg/dl Direct Bilirubin 0.1 (0-0.2) mg/dl AST 21 (13-39) U/L ALT 15 (7-52) U/L Alkaline Phosphatase 67 (34-104) U/L Total Protein 8.4 H (6.0-8.3) gm/dl Albumin 5.3 H (3.4-5.0) gm/dl Lipase 20 (11-82) U/L Urine Color Urine Appearance (Clear) Urine pH (4.5-7.5) Ur Specific [place] (1.000-1.030) Urine Protein (Negative) Urine Glucose (UA) (Negative) Urine Ketones (Negative) Urine Blood (Negative) Urine Nitrite (Negative) Urine Bilirubin (Negative) Urine Urobilinogen (Negative) Ur Leukocyte Esterase (Negative) Urine WBC (Auto) (0-5) /hpf Urine RBC (Auto) (0-4) /hpf U Hyaline Cast (Auto) (0-5) /lpf U Epithel Cells (Auto) (0-5) /lpf Urine Bacteria (Auto) (Negative) POC Ur Test (NEG) SARS-CoV-2, RNA, NAAT (NEGATIVE) Blood Parasites ID Cancelled 01/17/22 01/17/22 01/17/22 Range/Units 22:30 22:30 22:30 WBC RBC Hgb Hct MCV MCH MCHC RDW Std Deviation RDW Coeff of Vilma Plt Count MPV Immature Gran % (Auto) Neut % (Auto) Lymph % (Auto) [place] % (Auto) Eos % (Auto) Baso % (Auto) Neut # (Auto) Lymph # (Auto) [place] # (Auto) Eos # (Auto) Baso # (Auto) Immature Gran # (Auto) Absolute Nucleated RBC Nucleated RBC % (auto) Neutrophils % (Manual) Band Neutrophils % Lymphocytes % (Manual) Prolymphocyte % Reactive Lymphs % (Man) Monocytes % (Manual) Eosinophils % (Manual) Basophils % (Manual) Metamyelocytes % (Man) Myelocytes % (Man) Promyelocytes % (Man) Blast Cells % (Manual) Plasma Cell % (Manual) Other Cells % Nucleated RBC % Neutrophils # (Manual) Band Neutrophils # Total Absolute Neuts Lymphocytes # (Manual) Prolymphocyte # Reactive Lymphs # Total Abs Lymphocytes Monocytes # (Manual) Eosinophils # (Manual) Basophils # (Manual) Metamyelocytes # (Man) Myelocytes # (Manual) Promyelocytes # (Man) Blast Cells # (Man) Plasma Cell # (Manual) Other Cells # Nucleated RBCs # (Man) Hypersegmented Neuts Hyposegmented Neuts Hypogranular Neuts Large Granular Lymphs # Lrg Granular Lymphs Hairy Cells Smudge Cells Toxic Granulation Toxic Vacuolation Dohle Bodies Wiliam Rods Platelet Estimate Hypogranular Platelets Clumped Platelets Giant Platelets Platelet Satelliting RBC Morphology Polychromasia Hypochromasia Poikilocytosis Basophilic Stippling Anisocytosis Microcytosis Macrocytosis Spherocytes Pappenheimer Bodies Sickle Cells Target Cells Tear Drop Cells Ovalocytes Stomatocytes Kraft-[place] Bodies Echinocytes Acanthocytes (Spur) Rouleaux RBC Agglutinates Schistocytes Sezary Cell Sodium (136-145) mmol/L Potassium (3.5-5.1) mmol/L Chloride (98-107) mmol/L Carbon Dioxide (21-32) mmol/L Anion Gap (3-11) BUN (6-23) mg/dl Creatinine (0.6-1.2) mg/dl Est Cr Clr Drug Dosing ml/min Est GFR ( Amer) ml/min Est GFR (Non-Af Amer) ml/min BUN/Creatinine Ratio (10-20) Glucose (70-99(Fasting)) mg/dl Calcium (8.5-10.1) mg/dl Total Bilirubin (0.2-1.0) mg/dl Direct Bilirubin (0-0.2) mg/dl AST (13-39) U/L ALT (7-52) U/L Alkaline Phosphatase (34-104) U/L Total Protein (6.0-8.3) gm/dl Albumin (3.4-5.0) gm/dl Lipase (11-82) U/L Urine Color Yellow Urine Appearance Clear (Clear) Urine pH 5.0 (4.5-7.5) Ur Specific [place] 1.025 (1.000-1.030) Urine Protein Negative (Negative) Urine Glucose (UA) Negative (Negative) Urine Ketones 3+ H (Negative) Urine Blood 3+ H (Negative) Urine Nitrite Negative (Negative) Urine Bilirubin Negative (Negative) Urine Urobilinogen Negative (Negative) Ur Leukocyte Esterase Negative (Negative) Urine WBC (Auto) 1-5 (0-5) /hpf Urine RBC (Auto) 0-4 (0-4) /hpf U Hyaline Cast (Auto) 1-5 (0-5) /lpf U Epithel Cells (Auto) >30 H (0-5) /lpf Urine Bacteria (Auto) Negative (Negative) POC Ur Test NEG (NEG) SARS-CoV-2, RNA, NAAT NEGATIVE (NEGATIVE) Blood Parasites ID Imaging Data Radiologist's Impression: PreliminaryFindingsOnly See Final Report For Complete Findings CT ABDOMEN & PELVIS Without Contrast: Comparison:CT abdomen and pelvis 12/29/20 C holecystectomy. No biliarydilatation. Trace pneumobilia. Stable small hepatic cysts. Spleen, pancreas, adrenal glands, and kidneys are unremarkable. Distention of the duodenumis nonspecific but could represent a degree of SMAsyndrome. Bowel loops otherwise normal in caliber. No bowel inflammation. A ppendix not visualized. Uterus and urinarybladder are unremarkable. No acute osseous findings. Radiologist: Ivanna Yanez M.D. Study ready at 21:22 and initial results transmitted at 22:07 MDM Narrative Vital signs stable. Labs show leukocytosis thought to be reactive. Patient was extremely difficult vascular access we had to obtain vascular access to the patient's foot. We would not be able to give us IV contrast to the patient's foot. Patient was given oral contrast to drink but she was unable to tolerate it so CT was performed without contrast. Patient CT shows no obstruction. Patient is required multiple doses of antiemetics and analgesia in the emergency department patient will be admitted for intractable nausea and vomiting. Impression & Plan Intractable vomiting with nausea Discharge Plan Visit Data Chief Complaint: Vomiting Stated Complaint: Vomiting/ Hx Gastroparesis ED Provider: Sean Hines Discharge Problem: Intractable vomiting with nausea Patient Disposition: Admitted As Inpatient Discharge Instructions Interventions: ED Discharge Assessment Last Done: 01/18/22 00:32
[2022-01-17] MEDS ORDERED: ONDANSETRON 4 MG OD TAB PO STA (16:51)
[2022-01-17 17:39] LABS: Albumin Level 5.3 gm/dl (3.4-5.0); BUN Creatinine Ratio 17.9 (10-20); Bilirubin Direct 0.1 mg/dl (0-0.2); Bilirubin,Total 0.6 mg/dl (0.2-1.0); Calcium 10.6 mg/dl (8.5-10.1); Creatinine Clr Calc Pharmacy 57.5 ml/min; Est GFR (African American) 102.7 ml/min; Est GFR (Non-African American) 88.6 ml/min; Potassium 3.4 mmol/L (3.5-5.1); Total Protein 8.4 gm/dl (6.0-8.3)
[2022-01-17 18:14] LABS: Hematocrit (blood only) 41.8 % (34.1-44.9); Hemoglobin 13.8 g/dl (12.0-16.0); Mean Corpuscular Hemoglobin 28.9 pg (25.0-34.0); Mean Corpuscular Volume 87.6 fL (80.0-100.0); Mean Platelet Volume 9.7 fL (9.4-12.3); Platelet Count 258 K/uL (130-400); RDW Coefficient of Variation 17.4 % (11.5-14.5); RDW Standard Deviation 56.2 fL (36.4-46.3); Red Blood Count 4.77 M/uL (3.93-5.22); White Blood Count 22.69 K/ul (4.8-10.8)
[2022-01-17 18:31] LABS: Basophils # (auto) 0.05 K/uL (0-0.2); Basophils % (auto) 0.2 %; Eosinophils # (auto) 0.04 K/uL (0-0.50); Eosinophils % (auto) 0.2 %; Immature Granulocytes # (auto) 0.12 K/uL (0.00-0.02); Immature Granulocytes % (auto) 0.5 %; Lymphocytes # (auto) 0.53 K/uL (1.2-3.4); Lymphocytes % (auto) 2.3 %; Monocytes # (auto) 0.56 K/uL (0.24-0.82); Monocytes % (auto) 2.5 %; Neutrophils # (auto) 21.39 K/uL (1.4-6.5); Neutrophils % (auto) 94.3 %
--- NOTE | 2022-01-17 18:35 | XRay Report ---
XR abdomen 2V w PA chest CLINICAL HISTORY: vomitting. Bodyaches and chills COMPARISON STUDY: 12/29/2020 TECHNIQUE: Single view of the chest. Supine and upright views of the abdomen. FINDINGS: Single frontal view of the chest demonstrates the cardiomediastinal silhouette to be within normal li mits. The lungs are clear of acute alveolar opacities. There is no evidence for pleural effusion. The re is no evidence for vascular congestion. There is no acute osseous pathology. Abdomen: There is no free air or significant air-fluid levels present. The bowel gas pattern is withi n normal limits without evidence for dilatation or obstruction. Surgical clips are again seen from pr evious cholecystectomy. There is no evidence for organomegaly or gross intra-abdominal mass. No abnor mal calcifications are seen along the course of the urinary tracts bilaterally. No acute osseous path ology. IMPRESSION: 1. No acute intra-abdominal or chest abnormality. ACT 112: Negative or not required by law. Electronically signed by: Raudel Rawls M.D. 01/17/2022 6:33 PM
[2022-01-17] MEDS ORDERED: HYDROmorphone INJ 0.5 MG/0.5 ML SYR IV STA ×2 (19:09→21:55)
[2022-01-17 22:53] LABS: Appearance Urine Clear (Clear); Bacteria Urine Automated Negative (Negative); Bilirubin Urine Negative (Negative); Blood Urine 3+ (Negative); Color Urine Yellow; Epithelial Cell Urine Auto >30 /lpf (0-5); Glucose Urine UA Negative (Negative); Ketones Urine 3+ (Negative); Leukocyte Esterase Urine Negative (Negative); Nitrite Urine Negative (Negative); Protein Urine Negative (Negative); RBC Urine Automated 0-4 /hpf (0-4); Specific Gravity Urine 1.025 (1.000-1.030); Urobilinogen Urine Negative (Negative)
[2022-01-18] MEDS ORDERED: DICYCLOMINE HCL 10 MG CAP PO PRN (00:24)
[2022-01-18] MEDS ORDERED: HYDROmorphone INJ 0.5 MG/0.5 ML SYR IV PRN (00:24)
[2022-01-18] MEDS ORDERED: METOCLOPRAMIDE HCL INJ 5 MG/ML 2 ML VIAL IV PRN (00:24)
[2022-01-18] MEDS ORDERED: hydrOXYzine HCl 25 MG TAB PO PRN (00:24)
[2022-01-18] MEDS ORDERED: POTASSIUM CHLORIDE 20 MEQ/15 ML UDC PO STA (00:24)
[2022-01-18] MEDS ORDERED: GABAPENTIN 300 MG CAP PO PRN (00:24)
[2022-01-18] MEDS ORDERED: DICLOFENAC SOD 1% GEL 100 GM TUBE EXT PRN (00:24)
[2022-01-18] MEDS ORDERED: FAMOTIDINE 20MG/5ML IV PUSH IV ONE (00:47)
[2022-01-18] MEDS: FAMOTIDINE 20 MG in SYRINGE 3 ML IV SCH ×2 (01:38→09:11)
[2022-01-18] MEDS: SODIUM CHLORIDE 0.9% 1000ML 1,000 ML IV SCH ×2 (01:38→13:47)
--- NOTE | 2022-01-18 02:03 | History & Physical Report ---
Date of Service January 17, 2022 Assessment & Plan (1) Intractable vomiting with nausea: Plan: 51-year-old female with reported history of gastroparesis presenting with acute nausea with multiple episodes of vomiting and p.o. intolerance. Patient required multiple rounds of antiemetics as well as pain medication in the emergency room. As above, labs are significant for marked leukocytosis with WBC = 22.69 (most likely reactiveneutrophil predominance) lipase and LFTs are within normal limits. Observation to medical with telemetry Continue Zofran and Phenergan as needed Dilaudid as needed Reglan as needed Continue home nortriptyline and Amitiza Continue home Neurontin Continue home Bentyl Pepcid 20 mg IV twice daily Await over read from daytime radiologist. If SMA syndrome is expected patient should receive vascular imaging of the abdomen for further diagnosis. IV fluids with normal saline at 80 mL/h x 2 L Potassium repletion with 40 mEq p.o., repeat labs in the morning Check prealbumin with a.m. labs Consider nutrition consultation Admission and Anticipated Discharge Date Admission Date: January 17, 2022 History of Present Illness Chief Complaint: Nausea and vomiting Primary Care Provider: DO Gail Encarnacion Bao is a 51-year-old female with history of gastroparesis and arthritis presenting with persistent nausea and vomiting. Patient reports that she has been dealing with gastroparesis symptoms for 20 years. She was just recently diagnosed at [facility] approximately 2 years ago. She reports frequent bouts of nausea and vomiting as well as oral intolerance. She reports maintaining nutrition has been difficult. She has been speaking with surgeons regarding possible placement of a J-tube in the future. Patient was en route to a dermatology appointment this afternoon when she developed severe nausea and vomiting as well as diffuse abdominal pain. She reports vomiting over 2 L of liquid then bile, diaphoretic and near syncopal during her vomiting. Her friend called the ambulance. She reports vomiting over 60 times while she was waiting for the ambulance. She denies hematemesis. Denies fevers, chest pain, shortness of breath or diarrhea. In the ER patient with significant discomfort and persistent nausea. She was administered several rounds of antiemetics and pain medication. Difficult IV placement, patient ultimately had IV placed in the left foot. She was unable to tolerate oral contrast. ER course: Zofran 4 mg p.o., Zofran 4 mg IV x3 Normal saline x1 L bolus then 80 mL/h Dilaudid 0.5 mg IV x3 doses Pepcid 20 mg IV Potassium chloride 40 mg p.o. Allergies Allergy/AdvReac Type Severity Reaction Status Date / Time codeine Allergy Severe HIVES Verified 01/01/22 15:41 ketorolac Allergy Intermediate HIVES Verified 01/01/22 15:41 butorphanol Allergy Mild DYSTONIC Verified 01/01/22 15:41 REACTION prochlorperazine Allergy Unknown "DYSTONIC Verified 01/01/22 15:41 REACTION" acetaminophen Allergy Unknown Verified 01/01/22 15:41 [From Darvocet-N] morphine Allergy Unknown Verified 01/01/22 15:41 propoxyphene Allergy Unknown Verified 01/01/22 15:41 [From [facility]] methadone AdvReac Intermediate Nausea, Verified 01/01/22 15:41 Vomitting tramadol AdvReac Unknown felt Verified 01/01/22 15:41 "foggy" Home Medications Medication Instructions Recorded Confirmed Type acetaminophen 325 mg capsule 325 mg PO Q6H PRN Pain 05/02/19 01/17/22 History (Tylenol) dicyclomine 10 mg capsule 10 mg PO QID PRN Diarrhea 07/12/20 01/17/22 History pediatric multivitamin 1 tab PO DAILY 12/26/20 01/17/22 History (Flintstones Multivitamin) lubiprostone 8 mcg capsule 8 mcg PO BID 12/29/20 01/17/22 History rizatriptan 10 mg tablet (Maxalt) 10 mg PO Q2H PRN migraine headache 09/17/21 01/17/22 Rx #10 tabs omeprazole 20 mg capsule,delayed 20 mg PO BID PRN Acid Reflux 10/19/21 01/17/22 History release promethazine 12.5 mg tablet 12.5 mg PO BID 10/19/21 01/17/22 History clobetasol 0.05 % topical ointment 1 applic topical BID 2 weeks #30 12/18/21 01/17/22 Rx grams hydroxyzine HCl 25 mg tablet 25 mg PO TID PRN anxiety #60 tabs 12/18/21 01/17/22 Rx nortriptyline 25 mg capsule 25 mg PO DAILY #90 caps 01/11/22 01/17/22 Rx (Pamelor) oxycodone-acetaminophen 5 mg-325 1 tab PO Q6H PRN pain 30 days #120 01/11/22 01/17/22 Rx mg tablet (Percocet) tabs prednisone 20 mg tablet 20 mg PO DAILY #30 tabs 01/11/22 01/17/22 Rx diclofenac sodium 1 % topical gel 2 g topical QID PRN Pain 01/17/22 01/17/22 History gabapentin 300 mg capsule 300 mg PO BID PRN Pain 01/17/22 01/17/22 History Past Med/Surg History Medical History (Updated 01/18/22 @ 01:56 by May Enrique DO) Arthritis Gastroparesis Intractable vomiting with nausea Migraine headache without aura Surgical History History of ankle surgery History of appendectomy History of carpal tunnel surgery History of exploratory laparotomy History of tonsillectomy and adenoidectomy History of tubal ligation Hx of cholecystectomy S/P endoscopy 05/17/19 Dr. Rsulan Hutson- Upper GI S/P ERCP 05/17/19 Dr. Ruslan Hutson- Upper esophagus US, ERCP Family History Grandmother (Paternal) Myocardial infarction Cardiac disorder Diabetes Hypertension High cholesterol Grandfather (Paternal) Myocardial infarction Diabetes Hypertension Uncle AAA (abdominal aortic aneurysm) Aunt AAA (abdominal aortic aneurysm) Grandmother (Maternal) AAA (abdominal aortic aneurysm) Diabetes Hypertension High cholesterol Sister Asthma Gallbladder disease Hypertension Kidney stones High cholesterol Grandfather (Maternal) Diabetes Hypertension Father Hypertension High cholesterol Mother Multiple sclerosis Other FHx: heart disease Family history of diabetes mellitus Denies family history of Colon cancer Ovarian cancer Prostate cancer Breast cancer Social History Smoking Status: Never smoker Hx Alcohol Use: Yes Hx Substance Use: No Preferred Language: Divehi Visual Impairment: No Limitations Hearing Ability: Normal Beliefs That Will Affect Care: None marital status: Single Current Living Situation: Significant Other current occupational status: employed current occupation: nurse with [employer] Feels Safe at Home: Yes Childhood Exposure to Second-Hand Smoke: Yes caffeine: Yes Dental Care, Regularly: No Physical Activity Frequency: Does not Exercise Seatbelt Use: always Sunscreen Use: Yes Do you think of yourself as: straight/heterosexual Review of Systems Review of Systems: All systems reviewed & are unremarkable except as noted in HPI & below Physical Exam Physical Exam: General: patient very emotional and tearful in the ER, nontoxic, answers questions appropriately and follows commands Skin: warm, dry, erythematous rash present on bilateral lower extremities, plaque-like HEENT: NC/AT, PERRL, EOMI, anicteric sclera, conjunctiva without injection, external ear normal to inspection and nontender, nares patent, moist mucus membranes, dentition intact, no oropharyngeal lesions, neck supple, trachea midline, no LAD, no thyromegaly, no JVD Heart: +S1/S2, regular, no m/r/g Lungs: equal air entry bilaterally, no rales/rhonchi/wheezes Abd: +BS, soft, nondistended, diffusely tender to palpation without rebound, guarding or peritoneal signs Ext: warm, 2+ pulses in UE/LE bilaterally, no clubbing/cyanosis or edema Neuro: nonfocal, patient AA&O x 4, speech intact, no facial droop, moving all extremities on command with equal strength 5/5 Results & Data Results & Data ([facility]) Vital Signs (Past 12 Hours) Vital Signs Pulse Pulse Resp BP BP Pulse Ox O2 Del Method 01/17/22 22:13 76 18 97/53 L 94 Room Air 01/17/22 20:00 70 16 96/61 L 96 Room Air 01/17/22 18:00 79 16 98 01/17/22 16:26 96 Room Air 01/17/22 16:15 83 22 133/81 100 Room Air Laboratory Results Laboratory Results WBC 22.69 K/ul (4.8-10.8) H 01/17/22 18:04 RBC 4.77 M/uL (3.93-5.22) 01/17/22 18:04 Hgb 13.8 g/dl (12.0-16.0) 01/17/22 18:04 Hct 41.8 % (34.1-44.9) 01/17/22 18:04 MCV 87.6 fL (80.0-100.0) 01/17/22 18:04 MCH 28.9 pg (25.0-34.0) 01/17/22 18:04 MCHC 33.0 g/dL (32.0-36.0) 01/17/22 18:04 RDW Std Deviation 56.2 fL (36.4-46.3) H 01/17/22 18:04 RDW Coeff of Vilma 17.4 % (11.5-14.5) H 01/17/22 18:04 Plt Count 258 K/uL (130-400) 01/17/22 18:04 MPV 9.7 fL (9.4-12.3) 01/17/22 18:04 Immature Gran % (Auto) 0.5 % 01/17/22 18:04 Neut % (Auto) 94.3 % 01/17/22 18:04 Lymph % (Auto) 2.3 % 01/17/22 18:04 [place] % (Auto) 2.5 % 01/17/22 18:04 Eos % (Auto) 0.2 % 01/17/22 18:04 Baso % (Auto) 0.2 % 01/17/22 18:04 Neut # (Auto) 21.39 K/uL (1.4-6.5) H 01/17/22 18:04 Lymph # (Auto) 0.53 K/uL (1.2-3.4) L 01/17/22 18:04 [place] # (Auto) 0.56 K/uL (0.24-0.82) 01/17/22 18:04 Eos # (Auto) 0.04 K/uL (0-0.50) 01/17/22 18:04 Baso # (Auto) 0.05 K/uL (0-0.2) 01/17/22 18:04 Immature Gran # (Auto) 0.12 K/uL (0.00-0.02) H 01/17/22 18:04 Absolute Nucleated RBC Cancelled 01/17/22 17:03 Nucleated RBC % (auto) Cancelled 01/17/22 17:03 Neutrophils % (Manual) Cancelled 01/17/22 17:03 Band Neutrophils % Cancelled 01/17/22 17:03 Lymphocytes % (Manual) Cancelled 01/17/22 17:03 Prolymphocyte % Cancelled 01/17/22 17:03 Reactive Lymphs % (Man) Cancelled 01/17/22 17:03 Monocytes % (Manual) Cancelled 01/17/22 17:03 Eosinophils % (Manual) Cancelled 01/17/22 17:03 Basophils % (Manual) Cancelled 01/17/22 17:03 Metamyelocytes % (Man) Cancelled 01/17/22 17:03 Myelocytes % (Man) Cancelled 01/17/22 17:03 Promyelocytes % (Man) Cancelled 01/17/22 17:03 Blast Cells % (Manual) Cancelled 01/17/22 17:03 Plasma Cell % (Manual) Cancelled 01/17/22 17:03 Other Cells % Cancelled 01/17/22 17:03 Nucleated RBC % Cancelled 01/17/22 17:03 Neutrophils # (Manual) Cancelled 01/17/22 17:03 Band Neutrophils # Cancelled 01/17/22 17:03 Total Absolute Neuts Cancelled 01/17/22 17:03 Lymphocytes # (Manual) Cancelled 01/17/22 17:03 Prolymphocyte # Cancelled 01/17/22 17:03 Reactive Lymphs # Cancelled 01/17/22 17:03 Total Abs Lymphocytes Cancelled 01/17/22 17:03 Monocytes # (Manual) Cancelled 01/17/22 17:03 Eosinophils # (Manual) Cancelled 01/17/22 17:03 Basophils # (Manual) Cancelled 01/17/22 17:03 Metamyelocytes # (Man) Cancelled 01/17/22 17:03 Myelocytes # (Manual) Cancelled 01/17/22 17:03 Promyelocytes # (Man) Cancelled 01/17/22 17:03 Blast Cells # (Man) Cancelled 01/17/22 17:03 Plasma Cell # (Manual) Cancelled 01/17/22 17:03 Other Cells # Cancelled 01/17/22 17:03 Nucleated RBCs # (Man) Cancelled 01/17/22 17:03 Hypersegmented Neuts Cancelled 01/17/22 17:03 Hyposegmented Neuts Cancelled 01/17/22 17:03 Hypogranular Neuts Cancelled 01/17/22 17:03 Large Granular Lymphs Cancelled 01/17/22 17:03 # Lrg Granular Lymphs Cancelled 01/17/22 17:03 Hairy Cells Cancelled 01/17/22 17:03 Smudge Cells Cancelled 01/17/22 17:03 Toxic Granulation Cancelled 01/17/22 17:03 Toxic Vacuolation Cancelled 01/17/22 17:03 Dohle Bodies Cancelled 01/17/22 17:03 Wiliam Rods Cancelled 01/17/22 17:03 Platelet Estimate Cancelled 01/17/22 17:03 Hypogranular Platelets Cancelled 01/17/22 17:03 Clumped Platelets Cancelled 01/17/22 17:03 Giant Platelets Cancelled 01/17/22 17:03 Platelet Satelliting Cancelled 01/17/22 17:03 RBC Morphology Cancelled 01/17/22 17:03 Polychromasia Cancelled 01/17/22 17:03 Hypochromasia Cancelled 01/17/22 17:03 Poikilocytosis Cancelled 01/17/22 17:03 Basophilic Stippling Cancelled 01/17/22 17:03 Anisocytosis Cancelled 01/17/22 17:03 Microcytosis Cancelled 01/17/22 17:03 Macrocytosis Cancelled 01/17/22 17:03 Spherocytes Cancelled 01/17/22 17:03 Pappenheimer Bodies Cancelled 01/17/22 17:03 Sickle Cells Cancelled 01/17/22 17:03 Target Cells Cancelled 01/17/22 17:03 Tear Drop Cells Cancelled 01/17/22 17:03 Ovalocytes Cancelled 01/17/22 17:03 Stomatocytes Cancelled 01/17/22 17:03 [place] Bodies Cancelled 01/17/22 17:03 Echinocytes Cancelled 01/17/22 17:03 Acanthocytes (Spur) Cancelled 01/17/22 17:03 Rouleaux Cancelled 01/17/22 17:03 RBC Agglutinates Cancelled 01/17/22 17:03 Schistocytes Cancelled 01/17/22 17:03 Sezary Cell Cancelled 01/17/22 17:03 Sodium 132 mmol/L (136-145) L 01/17/22 17:03 Potassium 3.4 mmol/L (3.5-5.1) L 01/17/22 17:03 Chloride 98 mmol/L (98-107) 01/17/22 17:03 Carbon Dioxide 21 mmol/L (21-32) 01/17/22 17:03 Anion Gap 13 (3-11) H 01/17/22 17:03 BUN 14 mg/dl (6-23) 01/17/22 17:03 Creatinine 0.78 mg/dl (0.6-1.2) 01/17/22 17:03 Est Cr Clr Drug Dosing 57.5 ml/min 01/17/22 17:03 Est GFR ( Amer) 102.7 ml/min 01/17/22 17:03 Est GFR (Non-Af Amer) 88.6 ml/min 01/17/22 17:03 BUN/Creatinine Ratio 17.9 (10-20) 01/17/22 17:03 Glucose 144 mg/dl (70-99(Fasting)) H 01/17/22 17:03 Calcium 10.6 mg/dl (8.5-10.1) H 01/17/22 17:03 Magnesium 2.2 mg/dl (1.7-2.4) 01/17/22 17:03 Total Bilirubin 0.6 mg/dl (0.2-1.0) 01/17/22 17:03 Direct Bilirubin 0.1 mg/dl (0-0.2) 01/17/22 17:03 AST 21 U/L (13-39) 01/17/22 17:03 ALT 15 U/L (7-52) 01/17/22 17:03 Alkaline Phosphatase 67 U/L (34-104) 01/17/22 17:03 Total Protein 8.4 gm/dl (6.0-8.3) H 01/17/22 17:03 Albumin 5.3 gm/dl (3.4-5.0) H 01/17/22 17:03 Lipase 20 U/L (11-82) 01/17/22 17:03 Urine Color Yellow 01/17/22 22:30 Urine Appearance Clear (Clear) 01/17/22 22:30 Urine pH 5.0 (4.5-7.5) 01/17/22 22:30 Ur Specific [place] 1.025 (1.000-1.030) 01/17/22 22:30 Urine Protein Negative (Negative) 01/17/22 22:30 Urine Glucose (UA) Negative (Negative) 01/17/22 22:30 Urine Ketones 3+ (Negative) H 01/17/22 22:30 Urine Blood 3+ (Negative) H 01/17/22 22:30 Urine Nitrite Negative (Negative) 01/17/22 22:30 Urine Bilirubin Negative (Negative) 01/17/22 22:30 Urine Urobilinogen Negative (Negative) 01/17/22 22:30 Ur Leukocyte Esterase Negative (Negative) 01/17/22 22:30 Urine WBC (Auto) 1-5 /hpf (0-5) 01/17/22 22:30 Urine RBC (Auto) 0-4 /hpf (0-4) 01/17/22 22:30 U Hyaline Cast (Auto) 1-5 /lpf (0-5) 01/17/22 22:30 U Epithel Cells (Auto) >30 /lpf (0-5) H 01/17/22 22:30 Urine Bacteria (Auto) Negative (Negative) 01/17/22 22:30 POC Ur Test NEG (NEG) 01/17/22 22:30 SARS-CoV-2, RNA, NAAT NEGATIVE (NEGATIVE) 01/17/22 22:30 Blood Parasites ID Cancelled 01/17/22 17:03 Impressions Chest/Abdomen X-ray 01/17/22 16:26 XR abdomen 2V w PA chest CLINICAL HISTORY: vomitting. Bodyaches and chills COMPARISON STUDY: 12/29/2020 TECHNIQUE: Single view of the chest. Supine and upright views of the abdomen. FINDINGS: Single frontal view of the chest demonstrates the cardiomediastinal silhouette to be within normal limits. The lungs are clear of acute alveolar opacities. There is no evidence for pleural effusion. There is no evidence for vascular congestion. There is no acute osseous pathology. Abdomen: There is no free air or significant air-fluid levels present. The bowel gas pattern is within normal limits without evidence for dilatation or obstruction. Surgical clips are again seen from previous cholecystectomy. There is no evidence for organomegaly or gross intra-abdominal mass. No abnormal calcifications are seen along the course of the urinary tracts bilaterally. No acute osseous pathology. IMPRESSION: 1. No acute intra-abdominal or chest abnormality. ACT 112: Negative or not required by law. Electronically signed by: Raudel Rawls M.D. 01/17/2022 6:[address] abdomen and pelvis without contrastPer stat read: Comparison to CT abdomen and pelvis 12/29/2020. Cholecystectomy. No biliary dilatation. Trace pneumobilia. Stable small hepatic cyst. Spleen, pancreas, adrenal glands and kidneys are unremarkable. Distention of the duodenum is nonspecific but could represent a degree of SMA syndrome. Bowel loops otherwise normal in caliber. No bowel formation. Appendix not visualized. Uterus and urinary bladder are unremarkable. No acute osseous findings. PG Care Time/CCT Total # of Minutes Spent Total Time Spent with Patient: Total time spent is greater than 50% in coordination of care (as documented) at patient's floor/unit and/or counseling patient: Coding Level of Care Code INT OBSERVATION CARE 51M LVL 2 Diagnoses Intractable vomiting with nausea R11.2
[2022-01-18] MEDS ORDERED: PROMETHAZINE 12.5 MG/50.5 ML NSS IV ONE (05:08)
[2022-01-18] MEDS: HYDROmorphone INJ 0.5 MG/0.5 ML SYR IV PRN ×6 (05:53→22:45)
[2022-01-18 07:30] LABS: Hematocrit (blood only) 38.4 % (34.1-44.9); Hemoglobin 12.7 g/dl (12.0-16.0); Mean Corpuscular Hemoglobin 28.9 pg (25.0-34.0); Mean Corpuscular Hgb Conc 33.1 g/dL (32.0-36.0); Mean Corpuscular Volume 87.3 fL (80.0-100.0); Mean Platelet Volume 9.4 fL (9.4-12.3); Platelet Count 242 K/uL (130-400); RDW Coefficient of Variation 17.5 % (11.5-14.5); RDW Standard Deviation 55.9 fL (36.4-46.3); White Blood Count 12.03 K/ul (4.8-10.8)
[2022-01-18 07:31] LABS: Basophils # (auto) 0.02 K/uL (0-0.2); Basophils % (auto) 0.2 %; Eosinophils # (auto) 0.09 K/uL (0-0.50); Eosinophils % (auto) 0.7 %; Immature Granulocytes # (auto) 0.04 K/uL (0.00-0.02); Immature Granulocytes % (auto) 0.3 %; Lymphocytes # (auto) 1.31 K/uL (1.2-3.4); Lymphocytes % (auto) 10.9 %; Monocytes # (auto) 0.48 K/uL (0.24-0.82); Neutrophils # (auto) 10.09 K/uL (1.4-6.5); Neutrophils % (auto) 83.9 %
[2022-01-18 07:49] LABS: BUN Creatinine Ratio 17.8 (10-20); Bilirubin,Total 0.6 mg/dl (0.2-1.0); Calcium 8.3 mg/dl (8.5-10.1); Creatinine Clr Calc Pharmacy 61.4 ml/min; Est GFR (African American) 111.3 ml/min; Potassium 3.9 mmol/L (3.5-5.1); Prealbumin 17.9 mg/dl (20-40); Total Protein 6.2 gm/dl (6.0-8.3)
--- NOTE | 2022-01-18 07:53 | CT Scan Report ---
ABDOMEN AND PELVIS CT WITHOUT CONTRAST CT DOSE: 232.06 mGy.cm HISTORY: Acute nausea and vomiting with generalized abdominal pain nv abd pain TECHNIQUE: Multiaxial CT images of the abdomen and pelvis were performed without contrast. A dose lo wering technique was utilized adhering to the principles of ALARA. COMPARISON STUDY: Acute abdominal series radiographs of same day, CT abdomen pelvis 12/29/2020 FINDINGS: Imaged inferior cardiac chambers are unremarkable. The unenhanced spleen, pancreas and adre nal glands are unremarkable. Cholecystectomy. Minimal pneumobilia with mild intrahepatic and extrahep atic biliary ductal dilation is likely on a postsurgical basis and appears similar to comparison.Ther e are a few scattered hepatic cysts measuring up to 9 mm within the left hepatic lobe and 1.3 cm with in the right hepatic lobe. 7 mm cyst of the superior pole right kidney. 2 mm nonobstructing calculus of the interpolar left kidn ey. No ureteral calculi or hydronephrosis identified. Unremarkable urinary bladder. Pelvic basin phle boliths. Uterus and adnexa are unremarkable. Aorta and IVC are within normal limits. There is no lonny opathy. Mild distention the duodenum with narrowing at the third portion is favored to be physiologic. Modera te fecal retention. There is no bowel obstruction or bowel wall thickening. Appendectomy. Mild fecal retention. Trace free pelvic fluid is likely physiologic. Unremarkable soft tissues. Small posterior disc osteophyte complex at L5-S1. There is no acute fracture. IMPRESSION: 1. No acute intra-abdominal or intrapelvic abnormality. 2. 2 mm left renal calculus. 3. No bowel obstruction or bowel wall thickening. 4. Prior cholecystectomy and appendectomy. ACT 112: Negative or not required by law. The above report was generated using voice recognition software. It may contain grammatical, syntax o r spelling errors. Electronically signed by: Lucio Serrato M.D. 01/18/2022 7:51 AM
[2022-01-18] MEDS ORDERED: NORTRIPTYLINE HCL 25 MG CAP PO SCH (09:00)
[2022-01-18] MEDS: LUBIPROSTONE 8 MCG CAP PO SCH ×2 (09:10→20:03)
[2022-01-18] MEDS: ONDANSETRON INJ 2 MG/ML 2 ML VIAL IV PRN (11:33)
--- NOTE | 2022-01-18 16:41 | Hospitalist Progress Note ---
Date of Service January 18, 2022 Assessment & Plan (1) Intractable vomiting with nausea: Plan: 51-year-old female with reported history of gastroparesis presenting with acute nausea with multiple episodes of vomiting and p.o. intolerance. Patient required multiple rounds of antiemetics as well as pain medication in the emergency room. # Intractable vomiting with nausea in the setting of gastroparesis - CT Abdomen/Pelvis without obstruction or bowel wall thickening; incidental finding fo renal calculus (see below) - Zofran, Phenergan, Reglan - IVFs at 80/hr - switched Pepcid to Protonix 40mg BID IV due to inability to tolerate PO - continue home nortriptyline, Amitiza and gabapentin - continue home Bentyl PRN TID abdominal pain/spasm - Keep follow up with GI in [place] # Abdominal pain - secondary to emesis - increased Dilaudid frequency 0.5mg q3h and wean as able once she is able to take PO and can transition back to her home pain regimen (see below) # Hypokalemia - repleting as indicated # Protein calorie malnutrition - pre-albumin is 17.9 - PO ad jean - nutrition consult--appreciate recommendations # Renal calculus - incidental finding on CT Abd/Pelvis on admission - asymptomatic # chronic pain, thoracic outlet syndrome, cervical spinal pain, complex regional pain syndrome of the RUE - prescribed Han[place] 5-325mg q6h PRN moderate to severe pain--holding this for now since she is getting IV Dilaudid due to inability to take PO Dispo: pending clinical improvement. Admission and Anticipated Discharge Date Admission Date: January 17, 2022 Supervising Physician Co-Signing Physician Notes Patient see and examined independently of PGY-1 Dr. Wayne. Agree with history, exam findings, assessment and plan of care as outlined. In brief, Gail is a 51 year-old female with reported history of gastroparesis presenting with acute nausea with multiple episodes of vomiting and p.o. intolerance. Patient required multiple rounds of antiemetics as well as pain medication in the emergency room. She is tearful today as she has not relief from her current pain medication regimen. Having abdominal pain that she feels is muscular and radiates up into the lower part of her chest. She does report that she uses Bentyl as an outpatient fo intestinal spasm and this is helpful, but this feels more muscular. Still having nausea but no vomiting. Reports that the Phenergan works best for nausea. Has had haldol in the past but this tends ot make her very paranoid. VS and nursing notes reviewed. Tearful and anxious. Abdomen is soft. Epigastric tenderness, RLQ tenderness. Labs and imaging reviewed 1. Intractable vomiting with nausea in the setting of gastroparesis. CT Abdomen/Pelvis without obstruction or bowel wall thickening. PRN Zofran, Phenergan, Reglan. IVFs. PPI. Continue home nortriptyline, amitiza, gabapentin and Bentyl. 2. Abdominal pain. secondary to emesis. Likely MSK related. Unable to take PO so increased dilaudid 0.5mg q3h. Once she is able to take PO can transition to home Hanover regimen. 3. Protein calorie malnutrition. Pre-albumin is 17.9; nutrition consulted. 4. chronic pain. Holding home Hanover q6h since she is getting IV dialudid; however can transition back to PO meds once she is able to take PO. Dispo: pending clinical improvement. Subjective Patient was seen bedside this AM. Patient is very tearful and felt judged by staff and nurses. She is c/o RLQ pain and epigastric pain. She also c/o N ausea, but has not had any vomiting. Review of Systems Constitutional: + body aches, + fatigue, + weakness, + anorexia and + insomnia Eyes: as per Subjective / HPI Respiratory: as per Subjective / HPI Cardiovascular: as per Subjective / HPI Gastrointestinal: + abdominal pain, + heartburn, + nausea and + vomiting Genitourinary: as per Subjective / HPI Musculoskeletal: + neck pain, + joint pain, + myalgia and + body aches Psychiatric: + depression and + anxiety Physical Exam Constitutional: + acute distress, + in distress and + underweight Eyes: PERRL, conjunctivae normal, anicteric sclerae ENMT: external ear and nose normal, oropharynx normal Neck: trachea midline, no thyromegaly Respiratory: normal respiratory effort, lungs clear to auscultation Cardiovascular: RRR, no murmur, no edema Gastrointestinal (Abdomen): Inspection/Auscultation: normal bowel sounds Percussion/Palpation: + abdomen tender (diffusely ) Psychiatric: Orientation: alert Apperance: + disheveled Speech: + pressured speech Affect: + anxious affect and + tearful affect Mood: + depressed mood, + anxious mood and + irritable mood Results & Data Results & Data ([facility]) Vital Signs (Past 12 Hours) Vital Signs Temp Pulse Resp BP BP Pulse Ox O2 Del Method 01/18/22 15:37 36.7 C 74 18 129/77 96 Room Air 01/18/22 11:42 36.5 C 102 H 20 135/88 100 Room Air 01/18/22 10:36 36.7 C 83 18 120/73 100 Room Air 01/18/22 10:27 36.7 C 83 18 120/73 100 Room Air 01/18/22 07:15 92 H 16 108/58 L 100 Room Air 01/18/22 05:58 92 H 18 108/58 L 99 Room Air Resident Activity Tracking Resident Involvement: Resident Care Provided Care Provided: Adult Hospital Medicine
[2022-01-18] MEDS: NORTRIPTYLINE HCL 25 MG CAP PO SCH (20:04)
[2022-01-18] MEDS: PANTOprazole 40 MG in SYRINGE 0 ML IV SCH (20:04)
[2022-01-18] MEDS: PROMETHAZINE HCL 12.5 MG in SODIUM CHLORIDE 0.9% 50 ML IV PRN (22:45)
[2022-01-19] MEDS: HYDROmorphone INJ 0.5 MG/0.5 ML SYR IV PRN ×8 (01:35→22:56)
[2022-01-19] MEDS: PANTOprazole 40 MG in SYRINGE 0 ML IV SCH ×2 (07:50→19:48)
[2022-01-19] MEDS: ONDANSETRON INJ 2 MG/ML 2 ML VIAL IV PRN ×2 (07:50→13:51)
[2022-01-19] MEDS: LUBIPROSTONE 8 MCG CAP PO SCH ×2 (07:56→19:48)
[2022-01-19] MEDS: CEROVITE ADV FORMULA TAB PO SCH (10:55)
[2022-01-19] MEDS: THIAMINE HCL 50 MG TABLET PO SCH (10:55)
--- NOTE | 2022-01-19 14:49 | Hospitalist Progress Note ---
Date of Service January 19, 2022 Assessment & Plan (1) Intractable vomiting with nausea: (2) Menopausal and perimenopausal disorder: Plan 51-year-old female with reported history of gastroparesis presenting with acute nausea with multiple episodes of vomiting and p.o. intolerance. Patient required multiple rounds of antiemetics as well as pain medication in the emergency room. # Intractable vomiting with nausea in the setting of gastroparesis--improving - CT Abdomen/Pelvis without obstruction or bowel wall thickening; incidental finding fo renal calculus (see below) - Zofran, Phenergan, Reglan - LR at 80/hr for now - Continue Protonix 40mg BID IV due to nausea - continue home nortriptyline, Amitiza and gabapentin - continue home Bentyl PRN TID abdominal pain/spasm - Keep follow up with GI in [place] # Abdominal pain - secondary to emesis - Continue Dilaudid 0.5mg q3h and wean as able once she is able to take PO and can transition back to her home pain regimen (see below) # Hypokalemia - repleting as indicated # Protein calorie malnutrition - pre-albumin is 17.9 - PO ad jean - nutrition consult--appreciate recommendations # Renal calculus - incidental finding on CT Abd/Pelvis on admission - asymptomatic # chronic pain, thoracic outlet syndrome, cervical spinal pain, complex regional pain syndrome of the RUE - prescribed Champion 5-325mg q6h PRN moderate to severe pain--holding this for now since she is getting IV Dilaudid due to inability to take PO #rash on legs - has appointment with dermatology as an outpatient - trial of topical triamcinolone, which has helped a little in the past FEN: regular diet DVT prophylaxis: SCDs Code: FULL Dispo: pending clinical improvement. Admission and Anticipated Discharge Date Admission Date: January 17, 2022 Supervising Physician Co-Signing Physician Notes Patient see and examined independently of PGY-1 Dr. Wayne. Agree with history, exam findings, assessment and plan of care as outlined. In brief, Gail is a 51 year-old female with reported history of gastroparesis presenting with acute nausea with multiple episodes of vomiting and p.o. intolerance. Patient required multiple rounds of antiemetics as well as pain medication in the emergency room. Was able to take a few bites of food. Did have nausea and small amounts of non- bilious emesis, but this is baseline for her and feels that she is close the baseline. Pain around the lower chest/ribs and epigastric area is improved. Feels that when she takes pills she has increased nausea and is not ready to transition to oral pain medication. She is unsure if she would be able to tolerate liquid oxycodone over the pills. VS and nursing notes reviewed. Heart with regular rate and rhythm. No edema. Lungs are clear to auscultation throughout. Abdomen is soft. Epigastric tenderness, RLQ tenderness. Patches of hyperpigmentation, excoriation on the legs. Labs and imaging reviewed 1. Intractable vomiting with nausea in the setting of gastroparesis. Improved. CT Abdomen/Pelvis without obstruction or bowel wall thickening. PRN Zofran, Phenergan, Reglan. IVFs. PPI. Continue home nortriptyline, amitiza, gabapentin and Bentyl. 2. Abdominal pain. secondary to emesis. Likely MSK related. Unable to take PO, continue IV Dilaudid 0.5mg q3h. Once she is able to take PO can transition to home Champion regimen. Will plan to give a small amount of liquid oxycodone at the time of discharge in the event that pills cause pain or increased nausea/vomiting. 3. Protein calorie malnutrition. Pre-albumin is 17.9; nutrition consulted. Started thiamine and multivitamin. 4. chronic pain. Holding home Champion q6h since she is getting IV Dilaudid; however can transition back to PO meds once she is able to take PO. Dispo: pending clinical improvement. Suspect she will be ready for discharge in the AM. Subjective Patient was seen bedside this AM. She states that her N/V and pain have all improved since admission. She rates her pain a 5/10 right now (yesterday 10- 11). She also states that her menstrual period started today. She also sta lizet that last time she had an episode of N/V was right as she was getting her period. She does mentioned though that has gotten this N/V, and pain during times not in sync with her menstrual period. She also c/o feeling hot and sweaty. She was also been able to eat some food in small bites. Review of Systems Constitutional: + body aches, + fatigue and + weakness Eyes: as per Subjective / HPI Respiratory: as per Subjective / HPI Cardiovascular: as per Subjective / HPI Gastrointestinal: + abdominal pain, + nausea and + vomiting Genitourinary: as per Subjective / HPI Musculoskeletal: + myalgia Psychiatric: + anxiety Endocrine: as per Subjective / HPI Physical Exam Constitutional: + acute distress, + in distress, + malnourished and + underweight Eyes: PERRL, conjunctivae normal, anicteric sclerae ENMT: external ear and nose normal, oropharynx normal Neck: trachea midline, no thyromegaly Respiratory: normal respiratory effort, lungs clear to auscultation Cardiovascular: RRR, no murmur, no edema Gastrointestinal (Abdomen): Inspection/Auscultation: normal bowel sounds Psychiatric: Orientation: alert Apperance: + disheveled Speech: + pressured speech Affect: + anxious affect and + tearful affect Mood: + depressed mood, + anxious mood and + irritable mood Results & Data Results & Data ([facility]) Vital Signs (Past 12 Hours) Vital Signs Temp Pulse Pulse Resp BP Pulse Ox O2 Del Method 01/19/22 12:22 37.1 C 78 16 113/78 97 Room Air 01/19/22 08:43 60 01/19/22 08:01 36.9 C 77 16 124/76 100 Room Air 01/19/22 03:32 36.7 C 60 16 111/69 97 Room Air Resident Activity Tracking Resident Involvement: Resident Care Provided Care Provided: Adult Hospital Medicine
[2022-01-19] MEDS: LACTATED RINGER'S 1,000 ML IV SCH ×2 (18:50→20:05)
[2022-01-19] MEDS: TRIAMCINOLONE ACET 0.1% CR 80 GM TUBE EXT SCH (19:48)
[2022-01-19] MEDS: NORTRIPTYLINE HCL 25 MG CAP PO SCH (19:48)
[2022-01-20] MEDS: HYDROmorphone INJ 0.5 MG/0.5 ML SYR IV PRN ×7 (01:51→22:08)
[2022-01-20] MEDS: ONDANSETRON INJ 2 MG/ML 2 ML VIAL IV PRN ×2 (01:56→09:04)
[2022-01-20 06:29] LABS: Hematocrit (blood only) 38.3 % (34.1-44.9); Hemoglobin 12.8 g/dl (12.0-16.0); Mean Corpuscular Hemoglobin 29.6 pg (25.0-34.0); Mean Corpuscular Hgb Conc 33.4 g/dL (32.0-36.0); Mean Corpuscular Volume 88.7 fL (80.0-100.0); Mean Platelet Volume 9.3 fL (9.4-12.3); Platelet Count 241 K/uL (130-400); RDW Coefficient of Variation 17.3 % (11.5-14.5); RDW Standard Deviation 56.5 fL (36.4-46.3); Red Blood Count 4.32 M/uL (3.93-5.22); White Blood Count 5.87 K/ul (4.8-10.8)
[2022-01-20 06:52] LABS: BUN Creatinine Ratio 10.1 (10-20); Calcium 8.9 mg/dl (8.5-10.1); Creatinine Clr Calc Pharmacy 53.7 ml/min; Est GFR (African American) 101.2 ml/min; Est GFR (Non-African American) 87.3 ml/min; Potassium 3.5 mmol/L (3.5-5.1)
[2022-01-20] MEDS: CEROVITE ADV FORMULA TAB PO SCH (09:10)
[2022-01-20] MEDS: LUBIPROSTONE 8 MCG CAP PO SCH ×2 (09:10→19:50)
[2022-01-20] MEDS: TRIAMCINOLONE ACET 0.1% CR 80 GM TUBE EXT SCH ×2 (09:10→19:51)
[2022-01-20] MEDS: THIAMINE HCL 50 MG TABLET PO SCH (09:10)
[2022-01-20] MEDS ORDERED: HYDROmorphone INJ 0.5 MG/0.5 ML SYR IV STA (10:42)
[2022-01-20] MEDS: PANTOprazole 40 MG in SYRINGE 0 ML IV SCH ×2 (11:58→19:50)
[2022-01-20] MEDS: DICYCLOMINE HCL 10 MG CAP PO SCH ×3 (12:52→19:50)
[2022-01-20] MEDS: PROMETHAZINE HCL 12.5 MG in SODIUM CHLORIDE 0.9% 50 ML IV PRN ×2 (13:10→20:02)
--- NOTE | 2022-01-20 16:36 | Hospitalist Progress Note ---
Date of Service January 20, 2022 Assessment & Plan (1) Intractable vomiting with nausea: (2) Menopausal and perimenopausal disorder: Plan 51-year-old female with reported history of gastroparesis presenting with acute nausea with multiple episodes of vomiting and p.o. intolerance. Patient required multiple rounds of antiemetics as well as pain medication in the emergency room. # Intractable vomiting with nausea in the setting of gastroparesis--improving - CT Abdomen/Pelvis without obstruction or bowel wall thickening; incidental finding of renal calculus (see below) - Zofran, Phenergan, Reglan. Instructed to try Phenergan first since it works with the patient better. - Patient received LR last night. Will hold off on any fluids today as patient is getting better. - Continue Protonix 40mg BID IV due to nausea - continue home nortriptyline, Amitiza and gabapentin - continue home Bentyl QID scheduled for abdominal pain/spasm - Keep follow up with GI in [place] # Abdominal pain - secondary to emesis - Continue Dilaudid 0.5mg q3h and wean as able once she is able to take PO and can transition back to her home pain regimen (see below) - Gave an extra dose of Dilaudid .25mg this afternoon. - Pain had still not improved. Pain may be MSK in nature. Will give the patient Flexeril 5mg tomorrow morning and see how she does. # Hypokalemia - repleting as indicated # Protein calorie malnutrition - pre-albumin is 17.9 - PO ad jean - nutrition consult--appreciate recommendations - Getting thiamine 50mg QAM. Will consider giving on discharge. # Renal calculus - incidental finding on CT Abd/Pelvis on admission - asymptomatic # chronic pain, thoracic outlet syndrome, cervical spinal pain, complex regional pain syndrome of the RUE - prescribed [place] 5-325mg q6h PRN moderate to severe pain--holding this for now since she is getting IV Dilaudid due to inability to take PO #rash on legs - has appointment with dermatology as an outpatient - trial of topical triamcinolone, which has helped a little in the past FEN: regular diet DVT prophylaxis: SCDs Code: FULL Dispo: pending clinical improvement. Most likely tomorrow Admission and Anticipated Discharge Date Admission Date: January 17, 2022 Supervising Physician Co-Signing Physician Notes Patient see and examined independently of PGY-1 Dr. Wayne. Agree with history, exam findings, assessment and plan of care as outlined. In brief, Gail is a 51 year-old female with reported history of gastroparesis presenting with acute nausea with multiple episodes of vomiting and p.o. intolerance. Patient required multiple rounds of antiemetics as well as pain medication in the emergency room. She had some dinner last night, but reports that this caused increased nausea. This is common for her. Unfortunately, she continues to have pain over the right lower ribs and across the lower chest area. VS and nursing notes reviewed. Heart with regular rate and rhythm. No edema. Lungs are clear to auscultation throughout. Abdomen is soft. Epigastric tenderness, RLQ tenderness. Tenderness over the right lower ribs. Patches of hyperpigmentation and erythema, excoriation on the legs. Labs and imaging reviewed 1. Intractable vomiting with nausea in the setting of gastroparesis. Improved. CT Abdomen/Pelvis without obstruction or bowel wall thickening. PRN Zofran, Phenergan, Reglan. IVFs. PPI. Continue home nortriptyline, amitiza, gabapentin and Bentyl. 2. Abdominal pain. secondary to emesis. Likely MSK related. Unable to take PO, continue IV Dilaudid 0.5mg q3h. Once she is able to take PO can transition to home [place] regimen. Will plan to give a small amount of liquid oxycodone at the time of discharge in the event that pills cause pain or increased nausea/vomiting. 3. Protein calorie malnutrition. Pre-albumin is 17.9; nutrition consulted. Started thiamine and multivitamin. 4. chronic pain. Holding home Dow[place] q6h since she is getting IV Dilaudid; however can transition back to PO meds once she is able to take PO. Dispo: pending clinical improvement. Subjective Patient was seen bedside this AM. She c/o being frustrated, anxious, and not getting much sleep. She states that her pain has improved. It was an 11 but now is an 8. She states that it is always there and never goes away. She also states that she has a fever but that she runs low normally so 98 degrees is actually a fever for her. She has not had any more vomiting. She has been able to eat small bites of her oatmeal but does not think she is ready to try to take her PO meds. Her last BM was and it is normal for her to go long periods without a BM. She states that if she eats that she gets pain for the next 3 days. Review of Systems Review of Systems: All systems reviewed & are unremarkable except as noted in HPI & below Physical Exam Constitutional: + thin, + in distress and + underweight Eyes: PERRL, conjunctivae normal, anicteric sclerae ENMT: external ear and nose normal, oropharynx normal Respiratory: normal respiratory effort, lungs clear to auscultation Cardiovascular: RRR, no murmur, no edema Gastrointestinal (Abdomen): Inspection/Auscultation: abdomen normal to inspection and normal bowel sounds Percussion/Palpation: + abdomen tender (RUQ) Musculoskeletal: no cyanosis or clubbing, extremities motor strength 5/5 Skin: no rashes, warm and dry Results & Data Results & Data ([facility]) Vital Signs (Past 12 Hours) Vital Signs Temp Pulse Pulse Resp BP BP Pulse Ox 01/20/22 08:22 83 01/20/22 06:46 36.8 C 74 16 122/80 98 01/20/22 03:21 36.7 C 103 H 16 129/78 97 01/19/22 23:00 36.6 C 66 16 110/75 97 01/19/22 22:28 70 O2 Del Method 01/20/22 08:22 01/20/22 06:46 Room Air 01/20/22 03:21 Room Air 01/19/22 23:00 Room Air 01/19/22 22:28
[2022-01-20] MEDS ORDERED: CYCLOBENZAPRINE HCL 5 MG TAB PO STA (18:51)
[2022-01-20] MEDS: NORTRIPTYLINE HCL 25 MG CAP PO SCH (19:49)
[2022-01-21] MEDS: PROMETHAZINE HCL 12.5 MG in SODIUM CHLORIDE 0.9% 50 ML IV PRN ×3 (00:33→13:23)
[2022-01-21] MEDS: HYDROmorphone INJ 0.5 MG/0.5 ML SYR IV PRN ×6 (00:33→15:56)
[2022-01-21] MEDS: ONDANSETRON INJ 2 MG/ML 2 ML VIAL IV PRN ×2 (07:43→15:56)
[2022-01-21] MEDS: THIAMINE HCL 50 MG TABLET PO SCH (07:43)
[2022-01-21] MEDS: CEROVITE ADV FORMULA TAB PO SCH (07:43)
[2022-01-21] MEDS: LUBIPROSTONE 8 MCG CAP PO SCH (07:43)
[2022-01-21] MEDS: PANTOprazole 40 MG in SYRINGE 0 ML IV SCH (07:44)
[2022-01-21] MEDS ORDERED: CYCLOBENZAPRINE HCL 5 MG TAB PO ONE ×2 (09:00→09:33)
[2022-01-21] MEDS: TRIAMCINOLONE ACET 0.1% CR 80 GM TUBE EXT SCH (09:09)
[2022-01-21] MEDS: DICYCLOMINE HCL 10 MG CAP PO SCH ×3 (09:14→18:15)
[2022-01-21] MEDS ORDERED: SOD PHOSPHATE/SOD BIPHOSPHATE ENEMA 132 ML BTL PR STA (09:34)
--- NOTE | 2022-01-21 13:28 | Discharge Summary ---
Date of Service January 21, 2022 Admission HPI Per Admitting Provider Gail Gore is a 51-year-old female with history of gastroparesis and arthritis presenting with persistent nausea and vomiting. Patient reports that she has been dealing with gastroparesis symptoms for 20 years. She was just recently diagnosed at [facility] approximately 2 years ago. She reports frequent bouts of nausea and vomiting as well as oral intolerance. She reports maintaining nutrition has been difficult. She has been speaking with surgeons regarding possible placement of a J-tube in the future. Patient was en route to a dermatology appointment this afternoon when she developed severe nausea and vomiting as well as diffuse abdominal pain. She reports vomiting over 2 L of liquid then bile, diaphoretic and near syncopal during her vomiting. Her friend called the ambulance. She reports vomiting over 60 times while she was waiting for the ambulance. She denies hematemesis. Denies fevers, chest pain, shortness of breath or diarrhea. In the ER patient with significant discomfort and persistent nausea. She was administered several rounds of antiemetics and pain medication. Difficult IV placement, patient ultimately had IV placed in the left foot. She was unable to tolerate oral contrast. ER course: Zofran 4 mg p.o., Zofran 4 mg IV x3 Normal saline x1 L bolus then 80 mL/h Dilaudid 0.5 mg IV x3 doses Pepcid 20 mg IV Potassium chloride 40 mg p.o. Admission Exam Per Admitting Provider General: patient very emotional and tearful in the ER, nontoxic, answers questions appropriately and follows commands Skin: warm, dry, erythematous rash present on bilateral lower extremities, plaque-like HEENT: NC/AT, PERRL, EOMI, anicteric sclera, conjunctiva without injection, external ear normal to inspection and nontender, nares patent, moist mucus membranes, dentition intact, no oropharyngeal lesions, neck supple, trachea midline, no LAD, no thyromegaly, no JVD Heart: +S1/S2, regular, no m/r/g Lungs: equal air entry bilaterally, no rales/rhonchi/wheezes Abd: +BS, soft, nondistended, diffusely tender to palpation without rebound, guarding or peritoneal signs Ext: warm, 2+ pulses in UE/LE bilaterally, no clubbing/cyanosis or edema Neuro: nonfocal, patient AA&O x 4, speech intact, no facial droop, moving all extremities on command with equal strength 5/5 Principal Diagnosis Intractable vomiting with nausea Discharge Exam Constitutional + thin, + malnourished and + underweight Eyes PERRL, conjunctivae normal, anicteric sclerae ENMT external ear and nose normal, oropharynx normal Neck trachea midline, no thyromegaly Respiratory normal respiratory effort, lungs clear to auscultation Cardiovascular RRR, no murmur, no edema Gastrointestinal (Abdomen) Inspection/Auscultation: abdomen normal to inspection and normal bowel sounds Percussion/Palpation: + abdomen tender (RUQ) Musculoskeletal no cyanosis or clubbing, extremities motor strength 5/5 Skin no rashes, warm and dry Psychiatric A+Ox3, euthymic affect Affect: + anxious affect Mood: + depressed mood, + anxious mood and + irritable mood Discharge Data Allergies Allergy/AdvReac Type Severity Reaction Status Date / Time codeine Allergy Severe HIVES Verified 01/01/22 15:41 ketorolac Allergy Intermediate HIVES Verified 01/01/22 15:41 butorphanol Allergy Mild DYSTONIC Verified 01/01/22 15:41 REACTION prochlorperazine Allergy Unknown "DYSTONIC Verified 01/01/22 15:41 REACTION" acetaminophen Allergy Unknown Verified 01/01/22 15:41 [From Darvocet-N] morphine Allergy Unknown Verified 01/01/22 15:41 propoxyphene Allergy Unknown Verified 01/01/22 15:41 [From Darvocet-N] methadone AdvReac Intermediate Nausea, Verified 01/01/22 15:41 Vomitting tramadol AdvReac Unknown felt Verified 01/01/22 15:41 "foggy" Consultations 01/17/22 22:13 ED Decision to Admit Stat Ordered Studies 01/17/22 18:20 CT abd pelvis wo con Urgent Hospital Course (1) Intractable vomiting with nausea: (2) Menopausal and perimenopausal disorder: Plan 51-year-old female with reported history of gastroparesis presenting with acute nausea with multiple episodes of vomiting and p.o. intolerance. Patient required multiple rounds of antiemetics as well as pain medication in the em ergency room. Patient had Intractable vomiting with nausea in the setting of gastroparesis. CT Abdomen/Pelvis showed without obstruction or bowel wall thickening; incidental finding of renal calculus. Given Zofran, Phenergan, Reglan. Instructed to try Phenergan first since it works with the patient better. One day of IV fluids. Protonix 40mg BID. Gave Dilaudid for pain in the URQ. Pain did seem MSK in nature 2/2 vomiting. Was given Flexeril 5mg and it made it feel better. Gave thiamine. triamcinolone for rash. Patient's many issues stem from issues with stress, anxiety, and depression. Should address these issues outpatient. Follow up with GI about what the next steps in your GI treatment is needed. Talked with them before about J tube. Follow up with PCP and GI in [place]. Total Time Total Time Spent Total Time Spent (In Minutes): 60 Total Time Includes: Examination of the Patient, Discharge Planning and Medication Reconciliation Discharge Plan Discharge Items Patient Disposition: Home - Self-Care Reason For Visit: NAUSEA Discharge Diagnosis: Intractable vomiting with nausea Activity: Resume your previous activity Non-emergency contact: Primary Care Provider Call non-emergency contact if: your symptoms worsen, your pain is unusual for you and you have a fever Follow-up/Referrals: Sergio Marshall DO [Primary Care Provider] - 01/28/22 9:20 am Diet: Regular Addtl Attending Provider Instructions: You were admitted to the hospital for Intractable vomiting with nausea. You were treated with Zofran, Phenergan, Reglan, IV fluids, Protonix, Bentyl, Amitiza and gabapentin. You were also treated with Dilaudid and Flexeril for your abdominal pain. You also got thiamine for your protein calorie A discharge summary will be sent to your primary care physician to ensure continuity of care. Please bring this discharge summary with you to your next office appointment so that your provider can review it at that time. Follow-up appointments: * Make a follow-up appointment with your PCP within the next week. It is very important that you follow up with them shortly after discharge from the hospital * You have an appointment with Surya ARMSTRONG on 01/23/2022. Medications: Your medication list has been reviewed and reconciled upon discharge to ensure accuracy and continuity of care. An updated list of all your medications is included with your hospital discharge paperwork. Please review this list closely, and make note of any changes. * We sent a new medication called Cyclobenzaprine to your pharmacy. Take Cyclobenzaprine (5mg) at bedtime. * We sent a new medication called Liquid oxycodone to your pharmacy. Take oxycodone (20mg) up to twice daily as needed for pain * We sent a new medication called Promethazine to your pharmacy. Take Promethazine (12.5mg) up to twice a day for nausea * We sent a new medication called Thiamine to your pharmacy. Take Thiamine (50mg) once a day in the morning. If you have any issues filling these prescriptions, please call [phone] and ask to leave a message for Dr. Wayne. Take your medications as instructed; do not skip a dose of your medicines. Make sure all of your doctors know every medicine you are taking (including [id number]-[id number]-[id number] medicines, vitamins, and supplements). Call your primary care provider before taking any new medicines (including over- the- counter medicines, vitamins, and supplements), because some of these may interact with your current medications, or may make your symptoms worse. Tell your primary care provider if you cannot afford your medications. CONTACT YOUR PRIMARY CARE PROVIDER if you experience any of the following: Questions about medications Your symptoms worsen Difficulty following your treatment plan, or difficulty taking medications CALL 911 OR GO TO THE EMERGENCY DEPARTMENT if you experience any of the following: Sudden, severe abdominal pain or nausea/vomiting Severe chest pain, or chest pain that radiates (moves) to your jaw or arm Sudden, severe shortness of breath or difficulty breathing Thank you for allowing us to participate in your care. Pending Studies at Discharge: No Stand-Alone Forms: My [facility] Stream Tags, Smoking Cessation Medications and DC Order Prescriptions: New promethazine 12.5 mg tablet 12.5 mg PO BID PRN (Reason: nausea and vomiting) Qty: 14 0RF Rx Instructions: 3 doses during day; last dose no later than 4 hr before bedtime thiamine HCl (vitamin B1) [Vitamin B-1] 50 mg Tablet 50 mg PO QAM Qty: 30 0RF cyclobenzaprine 5 mg tablet 5 mg PO HS Qty: 10 0RF oxycodone 5 mg/5 mL solution 5 mg PO BID Qty: 30 0RF Continued promethazine 12.5 mg tablet 12.5 mg PO BID omeprazole 20 mg capsule,delayed release(DR/EC) 20 mg PO BID PRN (Reason: Acid Reflux) rizatriptan [Maxalt] 10 mg tablet 10 mg PO Q2H PRN (Reason: migraine headache) Qty: 10 3RF Rx Instructions: do not exceed 3 doses per 24 hrs hydroxyzine HCl 25 mg tablet 25 mg PO TID PRN (Reason: anxiety) Qty: 60 1RF clobetasol 0.05 % ointment 1 applic topical BID 14 Days Qty: 30 0RF Rx Instructions: Apply 1 g twice daily to affected area prednisone 20 mg tablet 20 mg PO DAILY Qty: 30 0RF Rx Instructions: Take PO w/ food. 4 daily x 3d, then 3 daily x3d, then 2 daily x3d, then 1 daily x3d. oxycodone-acetaminophen [Percocet] 5-325 mg tablet 1 tab PO Q6H PRN (Reason: pain) 30 Days Qty: 120 0RF nortriptyline [Pamelor] 25 mg capsule 25 mg PO DAILY Qty: 90 1RF dicyclomine 10 mg capsule 10 mg PO QID PRN (Reason: Diarrhea) Flintstones Multivitamin Tablet,Chewable 1 tab PO DAILY acetaminophen [Tylenol] 325 mg Capsule 325 mg PO Q6H PRN (Reason: Pain) lubiprostone 8 mcg capsule 8 mcg PO BID gabapentin 300 mg capsule 300 mg PO BID PRN (Reason: Pain) Rx Instructions: is ordered bid but pt takes PRN diclofenac sodium 1 % gel 2 g TOP QID PRN (Reason: Pain) Discharge Orders: Discharge Order (Routine); Ordered 01/21/22 Ordered By: Willi Wayne Admission Data Admit Date/Time: 01/17/22 23:20 Attending Provider: Brendon Michel Admit Provider: May Enrique Primary Care Provider: Sergio Marshall Other Providers: May Enrique Other Interventions: Discharge Summary Assessment (RN) Last Done: 01/21/22 15:46 Supervising Physician Co-Signing Physician Notes Patient see and examined independently of PGY-1 Dr. Wayne. Agree with history, exam findings, assessment and plan of care as outlined. In brief, Gail is a 51 year-old female with reported history of gastroparesis presenting with acute nausea with multiple episodes of vomiting and p.o. intolerance. Patient required multiple rounds of antiemetics as well as pain medication in the emergency room. This morning had two episodes of reported large volume emesis. Got dizzy when she was in the restroom vomiting. Feeling that she is close to her baseline (chronic nausea) and may be ready to be discharged after lunch. VS and nursing notes reviewed. Anxious appearing. Tearful. Patches of hyperpigmentation and erythema, excoriation on the legs. Labs and imaging reviewed 1. Intractable vomiting with nausea in the setting of gastroparesis. Improved. CT Abdomen/Pelvis without obstruction or bowel wall thickening. PRN Zofran, Phenergan, Reglan. IVFs. PPI. Continue home nortriptyline, amitiza, gabapentin and Bentyl. 2. Abdominal pain. secondary to emesis. Likely MSK related. Unable to take PO, continue IV Dilaudid 0.5mg q3h. Once she is able to take PO can transition to home [place] regimen. Will plan to give a small amount of liquid oxycodone at the time of discharge in the event that pills cause pain or increased nausea/vomiting. 3. Protein calorie malnutrition. Pre-albumin is 17.9; nutrition consulted. Started thiamine and multivitamin. 4. chronic pain. Holding home [place] q6h since she is getting IV Dilaudid; however can transition back to PO meds once she is able to take PO. Dispo: Discharge home today. Refill of Phenergan sent to pharmacy. I personally spent 45 minutes discharge planning for this patient today including trouble shooting with pharmacy regarding her oxycodone liquid prescription, attempting to obtain a prior authorization this afternoon but [employer] office was "closed for a holiday".
[2022-01-21] MEDS ORDERED: HYDROmorphone INJ 0.5 MG/0.5 ML SYR IV STA (17:56)
== END 2022-01-21 18:38 | disposition home or self-care (01) ==
LOC: ED 15:56 → EDINP 15:56 → SUATTDRO 23:20 → 2W 01-18 00:32
DX: N95.9 Unspecified menopausal and perimenopausal disorder; G89.29 Other chronic pain; N20.0 Calculus of kidney; G54.0 Brachial plexus disorders; E46 Unspecified protein-calorie malnutrition; K31.84 Gastroparesis; Z88.8 Allergy status to other drugs, medicaments and biological substances; Z79.899 Other long term (current) drug therapy; R21 Rash and other nonspecific skin eruption; G90.511 Complex regional pain syndrome I of right upper limb; M54.2 Cervicalgia; Z88.5 Allergy status to narcotic agent; Z68.1 Body mass index [BMI] 19.9 or less, adult; E87.6 Hypokalemia